=== PATIENT | female | born 1960 | race Caucasian/White ===

== ENCOUNTER 2019-12-15 14:23 | Inpatient (IN) | payer OTHER ==
[~2019-12-15] VITALS: Ht 160 cm; Wt 77.1 kg
--- NOTE | 2019-12-15 14:27 | NUR ---
PT. BIBA TAKEN TO BED 11
--- NOTE | 2019-12-15 14:30 | NUR ---
PT BIBA ALS FOR ALTERED MENTAL STATUS SECONDARY TO LOW BLOOD SUGAR, GLUCOSE 30 ON SCENE, GIVEN 20G SUGAR AND RECHECKED SHOWED 183 , PT AWAKE , ALERT, MONGOLIAN SPEAKING ,AFIBRILE ,SCE, CBS, AOX 3. PMHX DM ESRD
[2019-12-15 14:31] VITALS: BP 182/81
--- NOTE | 2019-12-15 14:37 | NUR ---
dr shen at bedside evaluating pt.
[2019-12-15] MEDS ORDERED: DEXTROSE 10% 500 ML IV SCH (14:45)
[2019-12-15] MEDS ORDERED: DEXTROSE 10% 500 ML IV ONE (14:53)
--- NOTE | 2019-12-15 15:02 | NUR ---
PT TO CT SCAN VIA [facility] , AWAKE , ALERT.
--- NOTE | 2019-12-15 15:25 | NUR ---
PT BACK FROM CT SCAN VIA [facility].
--- NOTE | 2019-12-15 15:46 | NUR ---
MACHINE SHOP SUPERVISOR AT BEDSIDE EVALUATING PT.
[2019-12-15 16:37] LABS: BASOPHILS # (AUTO) 0.1 K/uL (0.00-0.22); BASOPHILS % (AUTO) 0.6 % (0.0-2.0); HEMATOCRIT 34.7 % (36-48); LYMPHOCYTES # (AUTO) 1.7 K/uL (2.5-16.5); LYMPHOCYTES % (AUTO) 17.1 % (20.5-51.1); MEAN CORPUSCULAR HEMOGLOBIN 28 pg (27-31); MEAN CORPUSCULAR HGB CONC 32 g/dL (33-37); MEAN CORPUSCULAR VOLUME 89.3 fL (80-94); MONOCYTES # (AUTO) 0.3 K/uL (0.8-1.0); MONOCYTES % (AUTO) 2.9 % (1.7-9.3); NEUTROPHILS # (AUTO) 7.8 K/uL (1.8-7.7); NEUTROPHILS % (AUTO) 79.4 % (42.2-75.2); PLATELET COUNT (AUTO) 142 K/uL (140-450); RED BLOOD CELL COUNT(AUTO) 3.89 MIL/uL (4.20-5.40); RED CELL DISTRIBUTION WIDTH 16.8 % (11.6-13.7); WHITE BLOOD COUNT (AUTO) 9.8 K/uL (4.8-10.8)
--- NOTE | 2019-12-15 16:58 | NUR ---
labs at bedside drawing blood.
--- NOTE | 2019-12-15 17:06 | NUR ---
LABS DRAW BLOOD FROM RT ARM NOTIFIED IT WAS AVF.
[2019-12-15] MEDS ORDERED: cefTRIAXone 1,000 MG VIAL ONE (17:12)
[2019-12-15] MEDS ORDERED: GABA300C PO (17:23)
[2019-12-15] MEDS ORDERED: PHO667 PO (17:23)
[2019-12-15] MEDS ORDERED: CARV12.5 PO (17:25)
[2019-12-15 17:31] LABS: ALBUMIN 2.5 g/dL (3.4-5.0); ASPARTATE AMINOTRANSFERASE 22 U/L (15-37); CARBON DIOXIDE 22.4 mmol/L (21-32); CHLORIDE 98 mmol/L (98-107); GFR ARICAN-AMERICAN 4 mL/min (>90); GLUCOSE 179 mg/dL (74-106); SODIUM SERUM 132 mmol/L (136-145); TOTAL BILIRUBIN 0.3 mg/dL (0.0-1.0)
[2019-12-15] MEDS ORDERED: GLIP10TE PO (17:32)
[2019-12-15] MEDS ORDERED: ASPI-1822 PO (17:32)
[2019-12-15] MEDS ORDERED: [UNRECOGNIZED DRUG - CODE] PO (17:34)
[2019-12-15] MEDS ORDERED: FOLI0.8T PO (17:38)
[2019-12-15] MEDS ORDERED: METO-485 PO (17:38)
[2019-12-15] MEDS ORDERED: AMLO10TA PO (17:40)
[2019-12-15 17:42] LABS: POTASSIUM 6.4 mmol/L (3.5-5.1); UREA NITROGEN, BLOOD 71 mg/dL (7-18)
[2019-12-15 17:43] LABS: ACETAMINOPHEN < 0.5 ug/ml (10-30); CREATININE 12.2 mg/dL (0.6-1.3); SALICYLATE < 2.8 mg/dL (2.8-20.0)
[2019-12-15] MEDS ORDERED: ALBUTEROL 0.083% 2.5 MG/3 ML NEBU INH ONE (17:45)
[2019-12-15] MEDS ORDERED: SODIUM ZIRCONIUM CYCLOSILICATE 10 GM POWD.PACK PO ONE (17:45)
[2019-12-15] MEDS ORDERED: SODIUM BICARBONATE 8.4% PFS 50 MEQ/50 ML SYR IVP ONE (17:45)
[2019-12-15] MEDS ORDERED: CALCIUM GLUCONATE 10% 1000 MG/10 ML VIAL IVP ONE (17:45)
--- NOTE | 2019-12-15 19:10 | NUR ---
RECEIVED BEDSIDE REPORT FROM ER NURSE. PT CAME IN [facility]. IV SITE ON LAC 18G, PATENT, INTACT, AND ASYMPTOMATIC. BREATHING EVEN AND UNLABORED WITH OXYMIZER 3L. SKIN INTACT, WARM AND DRY TO TOUCH. ORIENTED ROOM TO PT. ALL SAFETY MEASUREMENT ARE MET. BOARD UPDATED, MRSA SWAB DONE, BED IN LOW POSITION, CALL LIGHT WITHIN REACH. Addendum: 12/16/19 at 0437 by Ronny Riggs RN PT HAVING OXYGEN 3LPM VIA NC
--- NOTE | 2019-12-15 19:10 | NUR ---
ADPatient will be admitted to care of dr franco. Admited to [facility]. Will go to room 120b. Belongings list completed. Report to kate de guzman.
[2019-12-15 20:00] VITALS: BP 186/79
[2019-12-15] MEDS ORDERED: HYDROcodone/APAP 7.5/325 MG 1 TAB PO PRN (20:05)
[2019-12-15] MEDS ORDERED: ONDANSETRON 4 MG/2 ML VIAL IVP PRN (20:05)
--- NOTE | 2019-12-15 20:26 | NUR ---
GIVEN COLACE AND HEPARIN MD ORDERED. PT TOLERATED WELL.
[2019-12-15 20:48] LABS: PROTHROMBIN TIME 10.3 secs (10.8-13.4)
[2019-12-15 20:57] LABS: FREE T4 (FREE THYROXINE) 0.94 ng/dL (0.76-1.46); PHOSPHORUS 8.8 mg/dL (2.5-4.9); THYROID STIMULATING HORMONE 1.16 uIU/mL (0.34-3.74)
[2019-12-15] MEDS ORDERED: DEXTROSE 50% 50 ML SYR IVP ONE (21:01)
[2019-12-15 21:03] LABS: APPEARANCE,URINE CLEAR (CLEAR); BILIRUBIN,URINE NEGATIVE (NEGATIVE); BLOOD, URINE NEGATIVE (NEGATIVE); COLOR,URINE YELLOW (YELLOW); LEUKOCYTE ESTERASE ,URINE NEGATIVE (NEGATIVE); NITRITE, URINE NEGATIVE (NEGATIVE); PH,URINE 7.5 (5.0-9.0); UGLUCOSE 1+ (NEGATIVE)
--- NOTE | 2019-12-15 21:05 | NUR ---
BS CHECKED, 60, GIVEN D50 MD ORDERED. WILL RE ACCESS BS.
[2019-12-15 21:14] LABS: BARBITURATE, URINE NEGATIVE ng/ml (NEG <=200); BENZODIAZEPINE, URINE NEGATIVE ng/mL (NEG <=200); CANNABINOID, URINE NEGATIVE ng/mL (NEG <=50); COCAINE, URINE NEGATIVE ng/mL (NEG <=300); OPIATE, URINE POSITIVE ng/mL (NEG <=2000); PHENCYCLIDINE SCREEN,URINE NEGATIVE ng/mL (NEG <=25)
[2019-12-15] MEDS: BLOOD GLUCOSE MONITORING 1 DEV DEV FS SCH (21:51)
[2019-12-15] MEDS: DEXTROSE 50% 50 ML SYR IVP PRN ×2 (21:52→23:41)
[2019-12-15] MEDS: NACL 0.9% 1,000 ML IV SCH (22:00)
[2019-12-15] MEDS: DOCUSATE SODIUM 100 MG GELCAP PO SCH (22:21)
--- NOTE | 2019-12-15 23:00 | NUR ---
BS CHECKED, 58, GIVEN ANOTHER D50 AND PROVIDE PEANUT BUTTER SANDWICH.
[2019-12-15 23:56] LABS: CARBON DIOXIDE 21.5 mmol/L (21-32); POTASSIUM 5.5 mmol/L (3.5-5.1)
[2019-12-16] VITALS (7 sets, daily range): BP systolic 104–197; BP diastolic 60–87
--- NOTE | 2019-12-16 | NUR ---
BS CHECKED, 144. NO INSULIN COVERAGE NEEDED.
[2019-12-16 00:01] LABS: CREATININE 12.6 mg/dL (0.6-1.3)
[2019-12-16] MEDS ORDERED: hydrALAZINE 20 MG/ML VIAL IVP ONE ×2 (00:15→02:30)
--- NOTE | 2019-12-16 00:50 | NUR ---
BP 197/87, GIVEN HYDRALAZINE MD ORDERED. PT TOLERATED WELL.
--- NOTE | 2019-12-16 01:50 | NUR ---
BP CHECKED, 184/70. REPORTED TO DR. SIMON.
[2019-12-16] MEDS: ACETAMINOPHEN 325 MG TAB PO PRN (03:28)
--- NOTE | 2019-12-16 03:30 | NUR ---
GIVEN HYDRALAZINE MD ORDERED. PT C/O HEADACHE, GIVEN TYLENOL. PT TOLERATED WELL. SCANNER DID NOT WORK, PUT IT MANUALLY.
--- NOTE | 2019-12-16 04:28 | NUR ---
BP CHECKED, 104/65. WILL CONTINUE TO MONITOR.
[2019-12-16] MEDS: METOCLOPRAMIDE 10 MG TAB PO SCH ×4 (05:58→23:06)
[2019-12-16] MEDS: BLOOD GLUCOSE MONITORING 1 DEV DEV FS SCH ×4 (05:58→21:09)
--- NOTE | 2019-12-16 05:59 | NUR ---
GIVEN REGLAN MD ORDERED. BS CHECKED, 121, NO INSULIN COVERAGE NEEDED.
--- NOTE | 2019-12-16 06:58 | NUR ---
PT IN STABLE CONDITION. WILL ENDORSE TO DAY SHIFT NURSE FOR CONTINUOUS CARE.
--- NOTE | 2019-12-16 07:15 | NUR ---
RECEIVED PT FROM TIP CUTTER NURSELUZ, PT IS AWAKE AND SEATED ON TH BED WITH A RESTRICTED ARM ON THE RT AV SHUNT IN PLACE AND RT UPPER CHEST CHALO CATHETER FOR DIALYSIS ACCESS, IV LINE ON THE LEFT FA G. 22 WITH NS INFUSING AT 10ML/HR, ON O2 3L NC, SAFETY AND FALL PRECAUTION ENFORCED, PT DENIES PAIN AND NO SIGN OF DISTRESS NOTED, PLAN OF CARE AND SAFETY WERE DISCUSSED, PT VERBALIZED UNDERSTANDING, AND WILL CONTINUE TO MONITOR PT.
[2019-12-16 07:21] LABS: BASOPHILS % (AUTO) 0.3 % (0.0-2.0); EOSINOPHILS # (AUTO) 0.2 K/uL (0-0.4); EOSINOPHILS % (AUTO) 1.6 % (0.0-4.0); HEMATOCRIT 33.8 % (36-48); HEMOGLOBIN 10.7 g/dL (12.0-16.0); LYMPHOCYTES # (AUTO) 2.5 K/uL (2.5-16.5); LYMPHOCYTES % (AUTO) 21.9 % (20.5-51.1); MEAN CORPUSCULAR HEMOGLOBIN 28 pg (27-31); MEAN CORPUSCULAR HGB CONC 32 g/dL (33-37); MEAN CORPUSCULAR VOLUME 88.6 fL (80-94); MONOCYTES # (AUTO) 0.5 K/uL (0.8-1.0); MONOCYTES % (AUTO) 4.5 % (1.7-9.3); NEUTROPHILS # (AUTO) 8.2 K/uL (1.8-7.7); NEUTROPHILS % (AUTO) 71.7 % (42.2-75.2); PLATELET COUNT (AUTO) 171 K/uL (140-450); RED BLOOD CELL COUNT(AUTO) 3.81 MIL/uL (4.20-5.40); RED CELL DISTRIBUTION WIDTH 16.7 % (11.6-13.7); WHITE BLOOD COUNT (AUTO) 11.5 K/uL (4.8-10.8)
[2019-12-16 07:34] LABS: CARBON DIOXIDE 21.7 mmol/L (21-32); POTASSIUM 5.7 mmol/L (3.5-5.1)
[2019-12-16 07:40] LABS: CREATININE 12.2 mg/dL (0.6-1.3)
[2019-12-16 07:42] LABS: CHOL/HDL RATIO 6.1 (1-4.5); MAGNESIUM 2.8 mg/dL (1.8-2.4); PHOSPHORUS 8.7 mg/dL (2.5-4.9)
[2019-12-16] MEDS: VITAMIN B COMPLEX W/C 1 TAB PO SCH (08:41)
[2019-12-16] MEDS: DOCUSATE SODIUM 100 MG GELCAP PO SCH ×2 (08:42→20:16)
[2019-12-16] MEDS: FOLIC ACID 1 MG TAB PO SCH (08:43)
[2019-12-16] MEDS: GABAPENTIN 300 MG CAP PO SCH (08:44)
[2019-12-16] MEDS: ASPIRIN 81 MG TAB.CHEW PO SCH (08:44)
[2019-12-16] MEDS: amLODIPine 5 MG TAB PO SCH (08:49)
[2019-12-16] MEDS: CARVEDILOL 12.5 MG TAB PO SCH ×2 (08:49→20:16)
[2019-12-16] MEDS ORDERED: CALCIUM ACETATE 667 MG TAB PO SCH (09:00)
--- NOTE | 2019-12-16 09:30 | NUR ---
PT BLOOD GLUCOSE WAS CHECKED PER DR. CHAMORRO'S ORDER AND RESULT IS 88, NO SIGN OF DISTRESS NOTED AND PT DENIES PAIN. WILL MONITOR PT.
--- NOTE | 2019-12-16 09:43 | NUR ---
PATIENT HAS BEEN SCREENED AND CATEGORIZED MODERATE NUTRITION RISK. PATIENT WILL BE SEEN WITHIN 3-5 DAYS OF ADMISSION. 12/18/2019-12/20/[address]
--- NOTE | 2019-12-16 10:09 | NUR ---
MEDICATIONS DUE GIVEN AND BP MEDICATION HAS BEEN HELD, PT IS SCHEDULED FOR DIALYSIS. ASSISTED PT IN EATING. TOLERATED WELL. SAFETY MEASURES IN PLACE AND CALL LIGHT WITHIN REACH. WILL CONTINUE TO MONITOR.
[2019-12-16] MEDS ORDERED: AZITHROMYCIN 250 MG TAB PO SCH (10:30)
--- NOTE | 2019-12-16 10:30 | NUR ---
MEDICATION DUE GIVEN AND PATIENT TOLERATED WELL. SAFETY MEASURES IN PLACE AND WILL CONTINUE TO MONITOR.
--- NOTE | 2019-12-16 10:45 | NUR ---
PATIENT STARTED HEMODIALYSIS . PT IS STABLE SAFETY MEASURES IN PLACE. WILL CONTINUE TO MONITOR.
[2019-12-16] MEDS: CALCIUM ACETATE 667 MG TAB PO SCH ×2 (13:41→18:07)
--- NOTE | 2019-12-16 13:45 | NUR ---
HEMODIALYSIS DONE AT THIS TIME. PT BP: 155/77, TX :83, O2 SAT: 96% AND RR:18. AND AN OUTPUT OF 2.5L. PT IS STABLE. SAFETY MEASURES IN PLACE AND CALL LIGHT WITHIN REACH.WILL CONTINUE TO MONITOR.
--- NOTE | 2019-12-16 16:10 | NUR ---
ECHOCARDIOGRAM IS DONE TO PT NOW. WILL CONTINUE TO MONITOR.
--- NOTE | 2019-12-16 16:30 | NUR ---
ECHOCARDIOGRAM DONE AND PT IS STABLE. VS; BP 158/70, SC 77, RR: 18, T: 98.8,O2SAT:97.WILL CONTINUE TO MONITOR.
--- NOTE | 2019-12-16 16:34 | NUR ---
PT BLOOD GLUCOSE MONITORED WITH A RESULT OF 136MG/DL. NO INSULIN COVERAGE. WILL CONTINUE TO MONITOR
--- NOTE | 2019-12-16 18:14 | NUR ---
MEDICATION DUE GIVEN, PT IS AWAKE AND EATING COMFORTABLY. SAFETY MEASURES IN PLACE.WILL CONTINUE TO MONITOR.
--- NOTE | 2019-12-16 19:18 | NUR ---
ENDORSED PT TO TIP BANDING MACHINE OPERATOR NURSE, ANDRZEJ, FOR CONTINUITY OF CARE.
--- NOTE | 2019-12-16 19:21 | NUR ---
RECEIVED PATIENT IN STABLE CONDITION FROM AM SHIFT NURSE FOR CONTINUITY OF CARE. RESPIRATIONS EVEN, UNLABORED. CONTINUES ON O2 2L VIA NC. RIGHT IJ HEMODIALYSIS ACCESS NOTED. SITE TO LEFT FOREARM PATENT/INTACT, INFUSING FLUIDS WELL. NO C/O PAIN. NO S/SX ACUTE DISTRESS. SAFETY PRECAUTIONS IN PLACE. CALL LIGHT WITHIN REACH. WILL CONTINUE TO MONITOR.
[2019-12-16] MEDS: NACL 0.9% 1,000 ML IV SCH (20:12)
[2019-12-16] MEDS: ATORVASTATIN 20 MG TAB PO SCH (20:16)
[2019-12-16] MEDS: INSULIN LISPRO SLIDING SCALE 100 UNITS/ML VIAL SUBQ PRN (20:24)
--- NOTE | 2019-12-16 21:21 | NUR ---
MADE ROUNDS. PATIENT IS ASLEEP AND IN STABLE CONDITION. NO C/O PAIN. NO S/SX ACUTE DISTRESS. CALL LIGHT WITHIN REACH. WILL CONTINUE TO MONITOR.
--- NOTE | 2019-12-16 23:43 | NUR ---
PATIENT IS AWAKE AND IN STABLE CONDITION. NO C/O PAIN. NO S/SX ACUTE DISTRESS. CALL LIGHT WITHIN REACH. WILL CONTINUE TO MONITOR.
[2019-12-17] VITALS: BP 142/56
--- NOTE | 2019-12-17 01:49 | NUR ---
PATIENT IS AWAKE WATCHING TV AND IN STABLE CONDITION. NO C/O PAIN. NO S/SX ACUTE DISTRESS. CALL LIGHT WITHIN REACH. WILL CONTINUE TO MONITOR.
--- NOTE | 2019-12-17 03:29 | NUR ---
AWAKE AND CONTINUES IN STABLE CONDITION. NO C/O PAIN. NO S/SX ACUTE DISTRESS. CALL LIGHT WITHIN REACH. WILL CONTINUE TO MONITOR.
[2019-12-17 04:00] VITALS: BP 142/67
--- NOTE | 2019-12-17 05:10 | NUR ---
PATIENT IS AWAKE AND CONTINUES IN STABLE CONDITION. NO C/O PAIN. NO S/SX ACUTE DISTRESS. CALL LIGHT WITHIN REACH. WILL CONTINUE TO MONITOR.
[2019-12-17] MEDS: METOCLOPRAMIDE 10 MG TAB PO SCH ×3 (06:10→17:19)
[2019-12-17] MEDS: BLOOD GLUCOSE MONITORING 1 DEV DEV FS SCH ×4 (06:32→21:38)
[2019-12-17] MEDS: INSULIN LISPRO SLIDING SCALE 100 UNITS/ML VIAL SUBQ PRN ×3 (06:32→21:43)
--- NOTE | 2019-12-17 07:17 | NUR ---
ENDORSED PATIENT IN STABLE CONDITION TO AM SHIFT NURSE FOR CONTINUITY OF CARE.
--- NOTE | 2019-12-17 07:21 | NUR ---
RECEIVED REPORT FROM NIGHT NURSE, PT IS AWAKE AND STABLE, NO DISTRESS NOTED AND DENIES PAIN. RESPIRATIONS EVEN AND UNLABORED ON O2 2LPM NC. IV SITES IN PLACE INTACT AND PATENT. SAFETY MEASURES IN PLACE AND CALL LIGHT WITH IN REACH. WILL CONTINUE TO MONITOR.
[2019-12-17 08:00] VITALS: BP 163/61
[2019-12-17] MEDS ORDERED: AZITHROMYCIN 250 MG TAB PO SCH (09:00)
[2019-12-17] MEDS: CALCIUM ACETATE 667 MG TAB PO SCH ×3 (09:21→16:50)
[2019-12-17] MEDS: ASPIRIN 81 MG TAB.CHEW PO SCH (09:22)
[2019-12-17] MEDS: DOCUSATE SODIUM 100 MG GELCAP PO SCH ×2 (09:22→21:28)
[2019-12-17] MEDS: VITAMIN B COMPLEX W/C 1 TAB PO SCH (09:22)
[2019-12-17] MEDS: GABAPENTIN 300 MG CAP PO SCH (09:23)
[2019-12-17] MEDS: FOLIC ACID 1 MG TAB PO SCH (09:24)
[2019-12-17] MEDS: LACTOBACILLUS RHAMNOSUS GG 1 EACH CAP PO SCH (09:24)
[2019-12-17] MEDS: CARVEDILOL 12.5 MG TAB PO SCH ×2 (09:24→21:28)
--- NOTE | 2019-12-17 09:24 | NUR ---
PT WAS GIVEN THE SCHEDULED AM MEDICATIONS,CRUSHED AND ASPIRATION PRECAUTION INITIATED, PARAMETERS CHECKED, BP IS 163/61, PULSE IS 88 MANUALLY, O2 SATURATION IS 97%, RESPIRATION IS 18/MIN. WILL MONITOR PT
[2019-12-17] MEDS: amLODIPine 5 MG TAB PO SCH (09:25)
--- NOTE | 2019-12-17 09:55 | NUR ---
DR. MURPHY CAME TO THE PT'S ROOM AND SPOKE AND ASSESSED THE PT AND PT RESPONDED APPROPRIATELY TO THE MD JOHNSON ASKED ABOUT a CARDIAC MEDICATION.
--- NOTE | 2019-12-17 11:28 | NUR ---
BLOOD GLUCOSE MONITORING DONE AT 289MG/DL AND GAVE INSULIN OF 6UNITS. PATIENT TOLERATED WELL.SAFETY MEASURES IN PLACE.WILL CONTINUE TO MONITOR.
[2019-12-17 12:00] VITALS: BP 149/56
--- NOTE | 2019-12-17 12:56 | NUR ---
PT WAS GIVEN ORAL MEDICATIONS NOW, CRUSHED WITH APPLE SAUCE, TOLERATED AND WILL MONITOR PT.
--- NOTE | 2019-12-17 14:15 | NUR ---
DISCHARGE PLANNING: THIS IS A 59 Y/O FEMALE PATIENT, FROM HOME, WHO WAS BIBA DUE TO ALETERED LEVEL OF CONSCIOUSNESS. PAST MEDICAL HISTORY INCLUDE ESRD ON HD -, DIABETES, HTN, HLD, CAD- S/P CABG AND CVA WITH LEFT SIDED WEAKNESS AND DYSPHAGIA. INITIAL DIAGNOSIS OF PERSISTENT HYPERKALEMIA AND ALTERED LEVEL OF CONSCIOUSNESS. CURRENT LABS INCLUDE WBC 11.5, H/H 10.7/33.8, NA/K 138/5.7, BUN/CREA 73/12.2, MAG 2.8. ON AZITHROMYCIN, ROCEPHIN. CARDIO, NEPHRO AND ID CONSULTS IN PLACE. DC PLAN BACK TO HOME ONCE STABLE. Addendum: 12/19/19 at 1332 by Olga Lewis CM DC PLANNING: SEEN BY DR MELTON DISCONTINUED AZITHROMYCIN AND STARTED VANCO AND CONTINUED IV ROCEPHIN FOR BLOOD CULTURE GROWING GRAM +COCCI . SEEN BY CARDIO AND GARDEN LABOURER CONTINUE HEMODIALYSIS. DC PLAN TOGO HOME WITH HOME HEALTH FOR PHYSICAL THERAPY. CM TO FOLLOW Addendum: 12/20/19 at 1021 by Yenni Nix CM 0900: RECEIVED A DC ORDER WITH HOME HEALTH. MET WITH THE PATIENT AT THE BEDSIDE TO DISCUSS DC PLANNING AND IS IN AGREEMENT. SHE STATED SHE HAD A HOME HEALTH BEFORE HOWEVER SHE IS REQUESTING FOR A NEW ONE. SHE CONFIRMED THE ADDRESS AND PHONE NUMBER ON FILE. CONTACTED PATIENT'S CHRISTAL AGUIRRE AT [phone] TO DISCUSS DC PLANNING AND IS IN AGREEMENT WELL. HE ASKED IF WHAT TIME. I INFORMED HIM THAT THE NURSE WILL CALLING HIM. ALL QUESTIONS AND CONCERNS ANSWERED AND IS VERY APPRECIATIVE. REFERRAL SENT TO [facility]. WILL FOLLOW UP. Addendum: 12/20/19 at 1315 by Yenni Nix CM PER NICOL OF [facility], THEY ARE ABLE TO ACCEPT THE PATIENT. I ALSO INFORMED HER THAT THE ADDRESS AND PHONE NUMBER ON THE FACE SHEET IS CORRECT AND PATIENT IS ON DIALYSIS M-W- AT [facility] AT 1345PM AND HER TAKES HER TO DIALYSIS. Addendum: 12/22/19 at 1004 by Yenni Nix RECEIVED A CALL FROM [facility] STATING THAT THEY ARE NOT ABLE TO PROVIDE SERVICES TO THE PATIENT DUE TO PATIENT'S IS REFUSING A NEW ZEALANDER NURSE AND IS REQUESTING TO HAVE A NURSE WHICH [facility] DOES NOT HAVE. CONTACTED PATIENT'S CHRISTAL AGUIRRE AT [phone], NO ANSWER. UNABLE TO LEAVE MESSAGE. NO VOICEMAIL SET UP AND IT JUST KEPT ON RINGING. CONTACTED PATIENT AT [phone], NO ANSWER AND SAME THING. IT JUST KEPT ON RINGING. WILL FOLLOW UP.
--- NOTE | 2019-12-17 14:30 | NUR ---
DR. CHAMORRO CAME TO PT'S ROOM AND SPOKE TO PT.
[2019-12-17] MEDS ORDERED: VANCOMYCIN PER PHARMACY MC PRN (14:50)
[2019-12-17 16:00] VITALS: BP 120/72
[2019-12-17 16:00] LABS: BASOPHILS % (AUTO) 0.4 % (0.0-2.0); EOSINOPHILS # (AUTO) 0.5 K/uL (0-0.4); EOSINOPHILS % (AUTO) 5.4 % (0.0-4.0); HEMATOCRIT 33.1 % (36-48); HEMOGLOBIN 10.4 g/dL (12.0-16.0); LYMPHOCYTES # (AUTO) 3.1 K/uL (2.5-16.5); LYMPHOCYTES % (AUTO) 33.3 % (20.5-51.1); MEAN CORPUSCULAR HEMOGLOBIN 28 pg (27-31); MEAN CORPUSCULAR HGB CONC 31 g/dL (33-37); MEAN CORPUSCULAR VOLUME 88.9 fL (80-94); MONOCYTES # (AUTO) 0.6 K/uL (0.8-1.0); NEUTROPHILS # (AUTO) 5.1 K/uL (1.8-7.7); NEUTROPHILS % (AUTO) 54.9 % (42.2-75.2); PLATELET COUNT (AUTO) 160 K/uL (140-450); RED BLOOD CELL COUNT(AUTO) 3.72 MIL/uL (4.20-5.40); RED CELL DISTRIBUTION WIDTH 15.6 % (11.6-13.7); WHITE BLOOD COUNT (AUTO) 9.3 K/uL (4.8-10.8)
[2019-12-17] MEDS ORDERED: VANCOMYCIN 750 MG in DEXTROSE 5% 250 ML IV SCH (16:00)
--- NOTE | 2019-12-17 16:07 | NUR ---
PT WAS GIVEN IVPB MEDICATION NOW.
[2019-12-17 16:34] LABS: ANION GAP 13.7 (8-16); CARBON DIOXIDE 26.7 mmol/L (21-32); POTASSIUM 5.4 mmol/L (3.5-5.1)
[2019-12-17 16:37] LABS: MAGNESIUM 2.7 mg/dL (1.8-2.4)
[2019-12-17 16:39] LABS: CREATININE 9.6 mg/dL (0.6-1.3)
--- NOTE | 2019-12-17 16:55 | NUR ---
MEDICATION DUE GIVEN PT TOLERATED WELL WILL CONTINUE TO MONITOR.
--- NOTE | 2019-12-17 17:23 | NUR ---
PT WAS GIVEN ORAL AND IVPB MEDICATIONS NOW, WILL MONITOR PT.
--- NOTE | 2019-12-17 19:15 | NUR ---
ENDORSED PT TO RN SECURITY NURSE, MALCOM, FOR CONTINUITY OF CARE.
--- NOTE | 2019-12-17 19:16 | NUR ---
RECEIVED ENDORSEMENT FROM AM SHIFT RN. PATIENT IS AWAKE. PATIENT SAID SHE IS SLEEPY. RESPIRATION EVEN AND UNLABORED. NOT IN ANY ACUTE DISTRESS. LAC 20G NOTED. INTACT. RIGHT I.J. TUNNELED CATH, NO BLEEDING NOTED. R ARM AV FISTULA (+) BRUIT. LOW BED IN PLACE. CALL LIGHT WITHIN REACH. WILL CONTINUE TO MONITOR.
[2019-12-17 20:00] VITALS: BP 124/39
[2019-12-17] MEDS: NACL 0.9% 1,000 ML IV SCH (20:01)
[2019-12-17] MEDS: ATORVASTATIN 20 MG TAB PO SCH (21:29)
--- NOTE | 2019-12-17 21:30 | NUR ---
ADMINISTERED DUE MEDS ORDERED. CLAUDIA WELL. MED ED PROVIDED. DENIES PAIN. CALL LIGHT WITHIN REACH.
[2019-12-18] VITALS: BP 115/49
[2019-12-18] MEDS: METOCLOPRAMIDE 10 MG TAB PO SCH ×4 (00:28→17:24)
--- NOTE | 2019-12-18 00:30 | NUR ---
ADMINISTERED REGLAN 5MG PO ORDERED. TOLERATED WELL. DENIES PAIN. NO SOB NOTED. CALL LIGHT WITHIN REACH.
--- NOTE | 2019-12-18 01:52 | NUR ---
PATIENT IS SLEEPING. RESPIRATION EVEN AND UNLABORED. WILL CONTINUE TO MONITOR
--- NOTE | 2019-12-18 03:21 | NUR ---
DID MY ROUNDS. PATIENT IS ASLEEP. RESPIRATION EVEN AND UNLABORED. WILL CONTINUE TO MONITOR.
[2019-12-18 04:00] VITALS: BP 150/53
[2019-12-18] MEDS: BLOOD GLUCOSE MONITORING 1 DEV DEV FS SCH ×4 (06:43→21:39)
--- NOTE | 2019-12-18 06:45 | NUR ---
DUE MEDS GIVEN ORDERED. CLAUDIA WELL. NOT IN ANY ACUTE DISTRESS. DENIES PAIN. WILL ENDORSE TO AM SHIFT RN FOR CONTINUITY OF CARE.
[2019-12-18 06:56] LABS: BASOPHILS # (AUTO) 0.1 K/uL (0.00-0.22); BASOPHILS % (AUTO) 0.6 % (0.0-2.0); EOSINOPHILS # (AUTO) 0.4 K/uL (0-0.4); EOSINOPHILS % (AUTO) 3.6 % (0.0-4.0); HEMATOCRIT 32.6 % (36-48); HEMOGLOBIN 10.3 g/dL (12.0-16.0); LYMPHOCYTES # (AUTO) 2.4 K/uL (2.5-16.5); LYMPHOCYTES % (AUTO) 21.1 % (20.5-51.1); MEAN CORPUSCULAR HEMOGLOBIN 28 pg (27-31); MEAN CORPUSCULAR HGB CONC 32 g/dL (33-37); MEAN CORPUSCULAR VOLUME 88.3 fL (80-94); MONOCYTES # (AUTO) 0.7 K/uL (0.8-1.0); MONOCYTES % (AUTO) 5.9 % (1.7-9.3); NEUTROPHILS # (AUTO) 7.8 K/uL (1.8-7.7); NEUTROPHILS % (AUTO) 68.8 % (42.2-75.2); PLATELET COUNT (AUTO) 176 K/uL (140-450); RED BLOOD CELL COUNT(AUTO) 3.69 MIL/uL (4.20-5.40); RED CELL DISTRIBUTION WIDTH 15.9 % (11.6-13.7); WHITE BLOOD COUNT (AUTO) 11.3 K/uL (4.8-10.8)
--- NOTE | 2019-12-18 07:15 | NUR ---
RECEIVED BEDSIDE REPORT FROM NIGHTSHIFT NURSE. PT RESTING IN BED. ABLE TO MAKE NEEDS KNOWN. RESPIRATIONS EVEN AND UNLABORED WITH NO SOB OR RESPIRATORY DISTRESS. SKIN WARM AND DRY TO TOUCH. IV SITE IN LEFT FA 22G IS CLEAN, DRY, AND INTACT. SAFETY MEASURES IN PLACE. WILL CONTINUE TO MONITOR
[2019-12-18 07:50] LABS: ANION GAP 15.9 (8-16); CARBON DIOXIDE 24.3 mmol/L (21-32)
[2019-12-18 07:56] LABS: MAGNESIUM 2.6 mg/dL (1.8-2.4); PHOSPHORUS 8.7 mg/dL (2.5-4.9)
[2019-12-18 08:00] VITALS: BP 131/51
[2019-12-18 08:15] LABS: CREATININE 10.1 mg/dL (0.6-1.3); POTASSIUM 6.2 mmol/L (3.5-5.1)
--- NOTE | 2019-12-18 08:16 | NUR ---
RECEIVED CRITICAL LAB FROM CHEMISTRY. POTASSIUM IS 6.2 AND CREATININE IS 10.1. RESIDENT MADE AWARE. SAFETY MEASURES IN PLACE.
[2019-12-18] MEDS: amLODIPine 5 MG TAB PO SCH (09:00)
[2019-12-18] MEDS: CARVEDILOL 12.5 MG TAB PO SCH ×2 (09:00→21:00)
[2019-12-18] MEDS ORDERED: BISACODYL 5 MG TABEC PO SCH (09:30)
[2019-12-18] MEDS ORDERED: SODIUM ZIRCONIUM CYCLOSILICATE 10 GM POWD.PACK PO SCH (10:00)
[2019-12-18] MEDS: ASPIRIN 81 MG TAB.CHEW PO SCH (10:16)
[2019-12-18] MEDS: FOLIC ACID 1 MG TAB PO SCH (10:17)
[2019-12-18] MEDS: DOCUSATE SODIUM 100 MG GELCAP PO SCH ×2 (10:18→21:40)
[2019-12-18] MEDS: GABAPENTIN 300 MG CAP PO SCH (10:20)
[2019-12-18] MEDS: CALCIUM ACETATE 667 MG TAB PO SCH ×3 (10:21→17:24)
[2019-12-18] MEDS: LACTOBACILLUS RHAMNOSUS GG 1 EACH CAP PO SCH (10:22)
[2019-12-18] MEDS: VITAMIN B COMPLEX W/C 1 TAB PO SCH (10:37)
[2019-12-18] MEDS: ACETAMINOPHEN 325 MG TAB PO PRN (10:37)
--- NOTE | 2019-12-18 10:40 | NUR ---
ADMINISTERED SCHED MED PRESCRIBED PER MD ORDER. PT TOLERATED WELL. MEDICATION EDUCATION PERFORMED. PT VERBALIZED UNDERSTANDING. SAFETY MEASURES IN PLACE. WILL CONTINUE TO MONITOR
--- NOTE | 2019-12-18 11:15 | NUR ---
DIALYSIS NURSE ROMMEL IS HERE. BEDSIDE REPORT GIVEN. PT RESTING IN BED. ABLE TO MAKE NEEDS KNOWN. RESPIRATIONS EVEN AND UNLABORED WITH NO SOB OR RESPIRATORY DISTRESS. SKIN WARM AND DRY TO TOUCH. SAFETY MEASURES IN PLACE. WILL CONTINUE TO MONITOR
[2019-12-18 12:00] VITALS: BP 111/27
[2019-12-18] MEDS: INSULIN LISPRO SLIDING SCALE 100 UNITS/ML VIAL SUBQ PRN ×3 (12:32→21:46)
--- NOTE | 2019-12-18 12:37 | NUR ---
ADMINISTERED SCHED MED PRESCRIBED PER MD ORDER. PT TOLERATED WELL. MEDICATION EDUCATION PERFORMED. PT VERBALIZED UNDERSTANDING. SAFETY MEASURES IN PLACE. WILL CONTINUE TO MONITOR
--- NOTE | 2019-12-18 12:43 | NUR ---
ST NOTE S: SWALLOW EVAL WAS RECEIVED AND VERIFIED. RN, REGINALDO, CLEARED Pt FOR SWALLOW EVAL. Pt WAS ALERT, RESPONSIVE, VERBAL, AND COOPERATIVE. HOB WAS NEAR 90 DEGREES FOR ASPIRATION PRECAUTIONS. Pt WAS ADMITTED FOR PERSISTENT HYPERKALEMIA, ALOC, METABOLIC ENCEPHALOPATHY D/T HYPOGLYCEMIA. PLOF WAS MSC/THIN DIET, LIVES AT HOME W/ . Pt HAS HX OF ESRD ON HD, DIABETES, HTN, CAD, CVA W/ LEFT SIDED WEAKNESS, DYSPHASIA, VASOMOTOR NEUROPATHY D/T ESRD, TYPE II MN LIKELY D/T ESRD, DIABETIC NEUROPATHY, DIABETIC GASTROPARESIS, OBESE (BMI 30.1). O: SWALLOW EVAL COMPLETED. A: Pt WAS ENDENTULOUS WITH FULL DENTURES IN. ORAL MOTOR FUNCTION WAS WFL. Pt WAS ABLE TO TOLERATE ICE CHIPS, PUREE, MSC, AND THIN LIQUIDS BY CUP OR STRAW, SINGLE SIPS, W/O DIFFICULTY OR OVERT S/S OF ASPIRATION OR PENETRATION NOTED. Pt REPORTED NOT BEING ABLE TO CUT OWN FOOD, BUT ABLE TO FEED SELF IF FOOD IS CUT PRIOR. Pt IS UNABLE TO MASTICATE REGULAR FOODS SUCH TOUGHER MEATS WITH DENTURES. P: REC PLOF DIET OF MSC FOOD AND THIN LIQUIDS, SINGLE SIPS BY CUP OR STRAW OKAY. ASPIRATION PRECAUTIONS, ORAL CARE, TRAY SET UP, AND INTERMITTENT SUPERVISION NEEDED. D/C SKILLED ST. Pt AT [facility].
--- NOTE | 2019-12-18 12:45 | NUR ---
HOURLY ROUNDING. PT RESTING IN BED. ABLE TO MAKE NEEDS KNOWN. RESPIRATIONS EVEN AND UNLABORED WITH NO SOB OR RESPIRATORY DISTRESS. SKIN WARM AND DRY TO TOUCH. SAFETY MEASURES IN PLACE. WILL CONTINUE TO MONITOR
--- NOTE | 2019-12-18 13:15 | NUR ---
RECEIVED TORB FROM VICKIE WAYNE MD FOR HEMODIALYSIS TX 3HR, 3L, K 1.2, HCO3 30, CA 2.5, NA 140, BFR 300, DFR 600. DIALYSIS NURSE ROMMEL CONFIRMED TORB TO VICKIE WAYNE MD AT THIS TIME.
[2019-12-18 16:00] VITALS: BP 126/57
--- NOTE | 2019-12-18 17:31 | NUR ---
ADMINISTERED SCHED MED PRESCRIBED PER MD ORDER. PT TOLERATED WELL. MEDICATION EDUCATION PERFORMED. PT VERBALIZED UNDERSTANDING. SAFETY MEASURES IN PLACE. WILL CONTINUE TO MONITOR
[2019-12-18 18:46] LABS: ANION GAP 11.3 (8-16); CARBON DIOXIDE 29.1 mmol/L (21-32); POTASSIUM 3.4 mmol/L (3.5-5.1)
[2019-12-18 18:49] LABS: MAGNESIUM 2.1 mg/dL (1.8-2.4); PHOSPHORUS 5.8 mg/dL (2.5-4.9)
[2019-12-18 18:57] LABS: CREATININE 5.7 mg/dL (0.6-1.3)
--- NOTE | 2019-12-18 18:58 | NUR ---
RECIEVED CRITICAL LAB FROM CHEMISTRY. CREATININE 5.7. RESIDENT AWARE. SAFETY MEASURES IN PLACE.
--- NOTE | 2019-12-18 19:05 | NUR ---
ENDORSED AT BEDSIDE TO NIGHTSHIFT NURSE. PT IS STABLE.
--- NOTE | 2019-12-18 19:06 | NUR ---
RECEIVED REPORT FROM AM SHIFT RN. PATIENT IS LYING IN BED. AWAKE ALERT. ABLE TO MAKE NEEDS KNOWN. ON O2 VIA NC AT 2LPM. RESPIRATION EVEN AND UNLABORED. NO SOB. LFA 22G NOTED. WITH RIGHT I.J. TUNNELED CATH. AND R ARM AV FISTULA (+) BRUIT. NO BLEEDING NOTED. LOW BED IN PLACE. PLAN OF CARE WAS DISCUSSED. CALL LIGHT WITHIN REACH
[2019-12-18 20:00] VITALS: BP 107/62
[2019-12-18] MEDS: NACL 0.9% 1,000 ML IV SCH (20:01)
--- NOTE | 2019-12-18 21:39 | NUR ---
ADMINISTERED DUE MEDS ORDERED. TOLERATED WELL. MED ED PROVIDED. DENIES PAIN. NO SOB NOTED. CALL LIGHT WITHIN REACH.
[2019-12-18] MEDS: ATORVASTATIN 20 MG TAB PO SCH (21:40)
[2019-12-19] VITALS: BP 149/56
[2019-12-19] MEDS: METOCLOPRAMIDE 10 MG TAB PO SCH ×4 (00:04→17:37)
--- NOTE | 2019-12-19 00:04 | NUR ---
GAVE REGLAN 5MG PO ORDERED. MED EDUCATION PROVIDED. PATIENT IS RESTING. COOPERATIVE. DENIES PAIN. CALL LIGHT WITHIN REACH.
--- NOTE | 2019-12-19 02:56 | NUR ---
PATIENT IS ASLEEP. RESPIRATION EVEN AND UNLABORED. NOT IN ANY DISTRESS.
[2019-12-19 04:00] VITALS: BP 162/63
--- NOTE | 2019-12-19 04:50 | NUR ---
INFORMED DR. SIMON OF THE BP 162/63. PATIENT IS ASYMPTOMATIC. HE SAID TO JUST MONITOR.
--- NOTE | 2019-12-19 06:13 | NUR ---
DUE MEDS GIVEN ORDERED. TOLERATED WELL. MED EDUCATION PROVIDED. NO C/O PAIN/DISCOMFORT. NO SOB NOTED.
--- NOTE | 2019-12-19 06:59 | NUR ---
PATIENT IS ASLEEP. NOT IN ANY ACUTE DISTRESS. LOW BED IN PLACE. KEPT CLEAN AND DRY. CALL LIGHT WITHIN REACH. WILL ENDORSE TO AM SHIFT RN FOR CONTINUITY OF CARE.
--- NOTE | 2019-12-19 07:10 | NUR ---
RECEIVED BEDSIDE REPORT FROM NIGHTSHIFT NURSE. PT RESTING IN BED. ABLE TO MAKE NEEDS KNOWN. RESPIRATIONS EVEN AND UNLABORED WITH NO SOB OR RESPIRATORY DISTRESS. SKIN WARM AND DRY TO TOUCH. IV SITE IN LAC 20G IS CLEAN, DRY, AND INTACT. SAFETY MEASURES IN PLACE. WILL CONTINUE TO MONITOR
[2019-12-19] MEDS: BLOOD GLUCOSE MONITORING 1 DEV DEV FS SCH ×4 (07:30→21:11)
[2019-12-19 08:00] VITALS: BP 145/66
[2019-12-19] MEDS ORDERED: VANCOMYCIN 750 MG in DEXTROSE 5% 250 ML IV SCH (08:00)
[2019-12-19] MEDS: INSULIN LISPRO SLIDING SCALE 100 UNITS/ML VIAL SUBQ PRN ×3 (08:43→21:13)
[2019-12-19] MEDS: DOCUSATE SODIUM 100 MG GELCAP PO SCH ×2 (08:52→21:10)
[2019-12-19] MEDS: CALCIUM ACETATE 667 MG TAB PO SCH ×3 (08:52→17:38)
[2019-12-19] MEDS: ASPIRIN 81 MG TAB.CHEW PO SCH (08:52)
--- NOTE | 2019-12-19 08:52 | NUR ---
ADMINISTERED SCHED MED PRESCRIBED PER MD ORDER. PT TOLERATED WELL. MEDICATION EDUCATION PERFORMED. PT VERBALIZED UNDERSTANDING. SAFETY MEASURES IN PLACE. WILL CONTINUE TO MONITOR
[2019-12-19] MEDS: amLODIPine 5 MG TAB PO SCH (08:53)
[2019-12-19] MEDS: LACTOBACILLUS RHAMNOSUS GG 1 EACH CAP PO SCH (08:53)
[2019-12-19] MEDS: VITAMIN B COMPLEX W/C 1 TAB PO SCH (08:53)
[2019-12-19] MEDS: GABAPENTIN 300 MG CAP PO SCH (08:54)
[2019-12-19] MEDS: FOLIC ACID 1 MG TAB PO SCH (08:54)
[2019-12-19] MEDS: CARVEDILOL 12.5 MG TAB PO SCH ×2 (08:55→21:10)
--- NOTE | 2019-12-19 11:21 | NUR ---
12/19/19 RD INITIAL ASSESSMENT COMPLETED PLEASE REFER TO NUTRITION ASSESSMENT UNDER CARE ACTIVITY FOR ESTIMATED NUTRITIONAL NEEDS. 1. [facility] CCHO 60GM AND RENAL DIET TOLERATED 2. RECOMMEND NEPRO ONCE DAILY 3. RD PROVIDED NUTRITION EDUCATION RESOURCES ON RENAL DIET IN [place] 4. RD TO FOLLOW-UP 3-5 DAYS, MODERATE RISK AVERY CADET, RD
[2019-12-19 12:00] VITALS: BP 112/64
--- NOTE | 2019-12-19 12:24 | NUR ---
ADMINISTERED SCHED MED PRESCRIBED PER MD ORDER. PT TOLERATED WELL. MEDICATION EDUCATION PERFORMED. PT VERBALIZED UNDERSTANDING. SAFETY MEASURES IN PLACE. WILL CONTINUE TO MONITOR
--- NOTE | 2019-12-19 14:04 | NUR ---
Malted Milk Mixer Note: Basic Screen: Yes High Risk DC Screen Bunk Foss: CHRISTAL Ellsworth Relationship: Pre-Admission Living Arrangements: Lives with Other Prior ADL Independent Current Home Health Name/Tel: UNKNOWN Current DME/02 Name/Tel: [facility] Current Hospice Name/Tel: N/A Current Dialysis Name/Tel: [facility] Healthcare Decision Maker: Patient Advance Directive No Physician Orders for Life Sustaining Treatment Form No Patient/Family Have Educational Needs No Information Taught: Advance Directive Person Taught: Patient Teaching Tools: Verbal Factors Affecting Learning: None Participation Level: Refused Evaluation: Verbalizes Understanding Needs Additional Education: No Discipline: Case Mgt/Social Svcs Tentative Discharge Plan/Destination: No Needs Identified Will require assistance post discharge: No Referred to Warehouse Order Picker: No Tentative Discharge Plan Summary: Patient is a 59-year-old female admitted for persistent hyperkalemia. Patient has PMHX of ESRD on HD, diabetes, and hypertension. Patient was admitted from home where she lives with her . SW met with patient at bedside to verify demographics. Patient stated that she is unsure if she receives home health but states that nurses come in to her residence. Patient stated that she receives dialysis from [facility]. Patient stated she is independent with her ADLs and reported no history of mental health and no current substance abuse. Tentative discharge plan is for patient to return home. No further needs identified. Signature: ALIYA Argueta Date: Dec 19, 2019 Time: 14:03
--- NOTE | 2019-12-19 15:55 | NUR ---
PT TALKING ON THE PHONE TO FAMILY. ABLE TO MAKE NEEDS KNOWN. RESPIRATIONS EVEN AND UNLABORED WITH NO SOB OR RESPIRATORY DISTRESS. SKIN WARM AND DRY TO TOUCH. SAFETY MEASURES IN PLACE. WILL CONTINUE TO MONITOR
[2019-12-19 16:00] VITALS: BP 131/56
[2019-12-19] MEDS: ACETAMINOPHEN 325 MG TAB PO PRN ×2 (17:40→21:09)
--- NOTE | 2019-12-19 17:46 | NUR ---
ADMINISTERED SCHED MED PRESCRIBED PER MD ORDER. PT TOLERATED WELL. MEDICATION EDUCATION PERFORMED. PT VERBALIZED UNDERSTANDING. SAFETY MEASURES IN PLACE. WILL CONTINUE TO MONITOR
--- NOTE | 2019-12-19 19:00 | NUR ---
ENDORSED AT BEDSIDE TO NIGHTSHIFT NURSE. PT IS STABLE
--- NOTE | 2019-12-19 19:01 | NUR ---
RECEIVED REPORT FROM DAYSHIFT NURSE. PATIENT IN BED RESTING. RESPIRATIONS EVEN AND UNLABORED. SKIN WARM AND DRY. DENIES ANY PAIN OR DISCOMFORT. HAS IV SITE LAC 20G CLEAN, DRY, AND INTACT. SAFETY MEASURES IN PLACE. CALL LIGHT WITHIN REACH. WILL CONTINUE TO MONITOR
[2019-12-19 20:00] VITALS: BP 125/45
[2019-12-19] MEDS: NACL 0.9% 1,000 ML IV SCH (20:01)
[2019-12-19] MEDS: ATORVASTATIN 20 MG TAB PO SCH (21:10)
--- NOTE | 2019-12-19 21:15 | NUR ---
PATIENT IN BED, ON SEMI-FOWLERS POSITION. VITAL SIGNS STABLE. ON O2 2LPM/NC. SCHEDULED MEDICATIONS GIVEN ORDERED. PATIENT COMPLAINS OF HEADACHE. TYLENOL GIVEN ORDERED. SAFETY MEASURES IN PLACE. BED IN LOW POSITION, BED ALARM ON, SIDE RAILS RAISED, CALL LIGHT WITHIN REACH. WILL CONTINUE TO MONITOR.
[2019-12-20] VITALS: BP 115/48
[2019-12-20] MEDS ORDERED: CRUSHER, PILL MC ONE (00:01)
[2019-12-20] MEDS: METOCLOPRAMIDE 10 MG TAB PO SCH ×3 (00:06→12:09)
--- NOTE | 2019-12-20 00:07 | NUR ---
ROUNDS DONE. PATIENT IN BED SLEEPING. PATIENT DIFFICULT TO WAKE BUT RESPONSIVE TO PAIN. VITAL SIGNS WITHIN NORMAL LIMITS. BLOOD SUGAR 192. O2 2LPM/NC IN PLACE. WILL CONTINUE TO MONITOR.
--- NOTE | 2019-12-20 00:08 | NUR ---
PATIENT NOTED DEEP SLEEPER. WOKE UP WHEN APPLIED TO NAILBEDS AND STATED SHE'S SLEEPING. CHARGE NURSE AWARE. SAFETY MEASURES IN PLACE. SIDE RAILS RAISED, BED IN LOW POSITION, CALL LIGHT WITHIN REACH. WILL CONTINUE TO MONITOR
--- NOTE | 2019-12-20 01:36 | NUR ---
ROUNDS DONE. PATIENT SLEEPING IN BED. O2 IN PLACE. NO SIGNS AND SYMPTOMS OF DISTRESS NOTED. SAFETY MEASURES IN PLACE. WILL CONTINUE TO MONITOR.
--- NOTE | 2019-12-20 03:21 | NUR ---
PATIENT IN BED SLEEPING. ON O2 2LPM/NC. NO SIGNS AND SYMPTOMS OF DISTRESS NOTED. SAFETY MEASURES IN PLACE. BED IN LOW POSITION, SIDE RAILS RAISED, CALL LIGHT WITHIN REACH. WILL CONTINUE TO MONITOR.
[2019-12-20 04:00] VITALS: BP 128/83
--- NOTE | 2019-12-20 04:30 | NUR ---
PATIENT IN BED. SCHEDULED MEDICATIONS GIVEN. VITAL SIGNS STABLE. NO SIGNS AND SYMPTOMS OF DISTRESS NOTED. SAFETY MEASURES IN PLACE. WILL CONTINUE TO MONITOR.
[2019-12-20] MEDS: BLOOD GLUCOSE MONITORING 1 DEV DEV FS SCH ×3 (05:45→16:27)
[2019-12-20 06:08] LABS: ANION GAP 12.4 (8-16); POTASSIUM 4.4 mmol/L (3.5-5.1)
[2019-12-20 06:15] LABS: BASOPHILS % (AUTO) 0.1 % (0.0-2.0); EOSINOPHILS # (AUTO) 0.8 K/uL (0-0.4); EOSINOPHILS % (AUTO) 8.1 % (0.0-4.0); HEMATOCRIT 31.8 % (36-48); HEMOGLOBIN 10.1 g/dL (12.0-16.0); LYMPHOCYTES # (AUTO) 4.3 K/uL (2.5-16.5); MAGNESIUM 2.4 mg/dL (1.8-2.4); MEAN CORPUSCULAR HEMOGLOBIN 28 pg (27-31); MEAN CORPUSCULAR HGB CONC 32 g/dL (33-37); MEAN CORPUSCULAR VOLUME 88.6 fL (80-94); MONOCYTES # (AUTO) 0.7 K/uL (0.8-1.0); NEUTROPHILS # (AUTO) 4.2 K/uL (1.8-7.7); NEUTROPHILS % (AUTO) 41.8 % (42.2-75.2); PHOSPHORUS 8.2 mg/dL (2.5-4.9); PLATELET COUNT (AUTO) 152 K/uL (140-450); RED CELL DISTRIBUTION WIDTH 15.4 % (11.6-13.7)
[2019-12-20 06:46] LABS: CREATININE 8.3 mg/dL (0.6-1.3)
--- NOTE | 2019-12-20 07:15 | NUR ---
ENDORSED PATIENT TO DAY SHIFT NURSE. PLAN OF CARE DISCUSSED. PATIENT IN STABLE CONDITION
--- NOTE | 2019-12-20 07:25 | NUR ---
RECEIVED REPORT FROM GIS PROGRAMMER NURSE, ARI, FOR CONTINUITY OF CARE. PT IS LYING IN BED AA&OX3. RESPIRATIONS ARE EVEN AND UNLABORED, BREATHING TO 2L NC. SKIN COLOR IS APPROPRIATE FOR ETHNICITY. IV ON LEFT FOREARM IS PATENT, AND INTACT. RT DIALYSIS DIVINA CATHETER IS INTACT. SKIN INTACT. REVIEWED PLAN OF CARE WITH PATIENT. SAFETY MEASURES IN PLACE, CALL LIGHT WITHIN REACH, BED IN LOW POSITIOIN, BED ALARM ON. TELE MONITOR ATTACHED. NO DISTRESS NOTED. WILL CONTINUE TO MONITOR.
[2019-12-20 08:28] VITALS: BP 129/60
[2019-12-20] MEDS: CALCIUM ACETATE 667 MG TAB PO SCH ×2 (09:16→13:00)
[2019-12-20] MEDS: VITAMIN B COMPLEX W/C 1 TAB PO SCH (09:17)
[2019-12-20] MEDS: LACTOBACILLUS RHAMNOSUS GG 1 EACH CAP PO SCH (09:17)
[2019-12-20] MEDS: ASPIRIN 81 MG TAB.CHEW PO SCH (09:17)
[2019-12-20] MEDS: FOLIC ACID 1 MG TAB PO SCH (09:17)
[2019-12-20] MEDS: DOCUSATE SODIUM 100 MG GELCAP PO SCH (09:17)
[2019-12-20] MEDS: GABAPENTIN 300 MG CAP PO SCH (09:18)
[2019-12-20] MEDS: amLODIPine 5 MG TAB PO SCH (09:30)
[2019-12-20] MEDS: CARVEDILOL 12.5 MG TAB PO SCH (09:30)
--- NOTE | 2019-12-20 09:30 | NUR ---
PT'S SCHEDULED MEDS WERE GIVEN. BP MED WAS HELD PENDING DIALYSIS TODAY. PT TOLERATED PO MEDS WELL. MEDICATION EDUCATION GIVEN, PT VERBALIZED UNDERSTANDING. NO DISTRESS NOTED. INFORMED PT THAT SHE WILL BE DC HOME TODAY AND PT AWARE AND CALLED TO FIND OUT TIME FOR FINANCIAL AID MANAGER. PT ALSO STATED SHE WANTS TO GET DIALYSIS HERE BEFORE DC. WILL CALL DISABILITY SPECIALIST TO FIND OUT ABOUT TIME. TELE MONITOR ATTACHED. SAFETY MEASURES IN PLACE. WILL CONTINUE TO MONITOR.
--- NOTE | 2019-12-20 09:36 | NUR ---
CALLED DIALYSIS NURSE, ROMMEL, OF PATIENT'S DISCHARGE TODAY. ROMMEL STATED THAT SHE WILL BE HERE AROUND 1100 TO PERFORM DIALYSIS, AND DIALYSIS SHOULD BE COMPLETED BY 1500. PT WAS INFORMED THAT SHE CAN ARRANGE FOR A PICKUP TIME BY HER BETWEEN 1500 AND 1600.
--- NOTE | 2019-12-20 11:00 | NUR ---
PT IS SITTING UP IN BED, AWAKE, AND WATCHING TV. TELE MONITOR ATTACHED. SAFETY MEASURES IN PLACE. NO DISTRESS NOTED. WILL CONTINUE TO MONITOR.
[2019-12-20 12:00] VITALS: BP 151/57
[2019-12-20] MEDS ORDERED: ATOR20TA40 PO (12:02)
[2019-12-20] MEDS ORDERED: PHO667 PO (12:02)
--- NOTE | 2019-12-20 12:18 | NUR ---
PT'S SCHEDULED MEDICATION GIVEN. PT TOLERATED PO MED WELL. MED EDUCATION GIVEN, PT VERBALIZED UNDERSTANDING. BLOOD GLUCOSE CHECKED, 181. WILL ADMINISTER COVERAGE. PT IS IN DIALYSIS, DIALYSIS NURSE IS AT BEDSIDE. NO DISTRESS NOTED. TELE MONITOR ATTACHED. SAFETY MEASURES IN PLACE. WILL CONTINUE TO MONITOR.
[2019-12-20] MEDS: INSULIN LISPRO SLIDING SCALE 100 UNITS/ML VIAL SUBQ PRN ×2 (12:23→16:28)
--- NOTE | 2019-12-20 13:12 | NUR ---
PT IS RECEIVING DIALYSIS. DIALYSIS NURSE IS AT BEDSIDE. DR. SHOEMAKER SPOKE WITH PT ABOUT UPCOMING DISCHARGE. NO DISTRESS NOTED. TELE MONITOR ATTACHED. SAFETY MEASURES IN PLACE. WILL CONTINUE TO MONITOR.
--- NOTE | 2019-12-20 15:17 | NUR ---
SITE SAFETY MANAGER ADMINISTERED 10,000 UNIT OF [place], UNABLE TO SCAN DUE TO SHE THREW THE EMPTY BOTTLES IN THE BIN, MANUALLY ENTER. DIALYSIS TOOK OUT 3 LITERS. PT'S 1300 MEDICATION WAS HELD, DUE TO DIALYSIS. HELD BP MEDS BECAUSE BLOOD PRESURE WAS TAKEN, AND WAS LOW; 105/40. PT STATED THAT HER IS PICKING HER UP AT 1600. PT IS SITTING UP IN BED. NO DISTRESS NOTED. TELE MONITOR ATTACHED. SAFETY MEASURES IN PLACE. WILL CONTINUE TO MONITOR.
--- NOTE | 2019-12-20 16:08 | NUR ---
DISCHARGE EDUCATION PROVIDED TO PT AT BEDSIDE. EDUCATED PT ON MD FOLLOW UP, SEEK MEDICAL HELP IN CASE OF EMERGENCY, HOME HEALTH WITH PHYSICAL THERAPY, MEDICATION REGIMEN, SIDE EFFECTS AND DIET. ANSWERED ALL PT'S QUESTIONS AND PT VERBALIZED UNDERSTANDING. PT WAS AWARE THAT HER PRESCRIPTION SEND TO HER PREFERRED PHARMACY. PT IS CURRENT WITH BOTH VACCINES. WORKFORCE ADVISOR IS ASSISTING PT TO CHANGE INTO HER OWN CLOTHES. NO SIGNS OF DISTRESS NOTED. AWAITING FOR TO ARRIVES TO HOSPITAL FOR DISCHARGE. TELE MONITOR ATTACHED. SAFETY MEASURES IN PLACE.
--- NOTE | 2019-12-20 16:28 | NUR ---
PT'S BLOOD SUGAR WAS CHECK WITH A RESULT OF 312. INSULIN COVERAGE PROVIDED. MED EDUCATION WAS GIVEN, PT VERBALIZED UNDERSTANDING. NO DISTRESS NOTED. SAFETY MEASURES IN PLACE.
--- NOTE | 2019-12-20 17:12 | NUR ---
CALLED PT'S MAORI [phone] FOR SOLE TIER TIME AND NO ANSWER, VOICE MAIL BOX IS NOT SET UP.
--- NOTE | 2019-12-20 17:50 | NUR ---
REMOVED ALL ARM BAND AND IV, IV CANNULA INTACT AND COMPLETE. NO BLEEDING ON IV SITE. REMOVED TELE BOX AND RETURN TO CONTACT CENTER DIRECTOR. PT TOOK ALL HER BELONGINGS HOME WITH HER. CHRIS PARRY ESCORTED PT TO FRONT LOBBY WITH WHEELCHAIR. PT IS GOING TO DC HOME AT THIS TIME IN STABLE CONDITION.
== END 2019-12-20 17:50 | disposition home or self-care (01) | DRG 177 ==
LOC: MED 14:23 → EDBD 14:23 → MTU 17:52
PROVIDERS: ADMIT General Practice; ATTEND General Practice
PROC: 5A1D70Z Performance of Urinary Filtration, Intermittent, Less than 6 Hours Per Day (ICD-10-PCS; principal; 2019-12-16)
PROC: 5A1D70Z Performance of Urinary Filtration, Intermittent, Less than 6 Hours Per Day (ICD-10-PCS; 2019-12-18)
PROC: 5A1D70Z Performance of Urinary Filtration, Intermittent, Less than 6 Hours Per Day (ICD-10-PCS; 2019-12-20)
DX: J69.0 Pneumonitis due to inhalation of food and vomit (principal); I21.A1 Myocardial infarction type 2; G93.41 Metabolic encephalopathy; E43 Unspecified severe protein-calorie malnutrition; N17.0 Acute kidney failure with tubular necrosis; N18.6 End stage renal disease; I12.0 Hypertensive chronic kidney disease with stage 5 chronic kidney disease or end stage renal disease; E11.649 Type 2 diabetes mellitus with hypoglycemia without coma; E11.43 Type 2 diabetes mellitus with diabetic autonomic (poly)neuropathy; Z68.30 Body mass index [BMI] 30.0-30.9, adult; Z99.2 Dependence on renal dialysis; E11.22 Type 2 diabetes mellitus with diabetic chronic kidney disease; E87.5 Hyperkalemia; I25.10 Atherosclerotic heart disease of native coronary artery without angina pectoris; E78.5 Hyperlipidemia, unspecified; E11.40 Type 2 diabetes mellitus with diabetic neuropathy, unspecified; K31.84 Gastroparesis; E66.9 Obesity, unspecified; E83.39 Other disorders of phosphorus metabolism; E83.41 Hypermagnesemia; Z87.891 Personal history of nicotine dependence
CPT/HCPCS: 36415; 70450; 71045; 80048; 80053; 80202; 80305; 81003; 82140; 82150; 82550; 82948; 83036; 83605; 83690; 83735; 83880; 84100; 84439; 84443; 84484; 85025; 85610; 85730; 87040; 87081; 87804; 90935; 92610; 93005; 96361; 96365; 97110; 97112; 97116; 97530; 99291; C1758; G0480; G0482; J0360; J0696; J1644; J1815; J3370; J7030; J7060; J8597; Q0092

== ENCOUNTER 2020-03-08 16:05 | Inpatient (IN) | payer OTHER, SELFPAY ==
[~2020-03-08] VITALS: Ht 157.5 cm; Wt 68.9 kg
[~2020-03-08 16:05] MED LIST: AMLO10TA PO; ASPI-1822 PO; ATOR20TA40 PO; CARV12.5 PO; FOLI0.8T PO; GABA300C PO; METO-485 PO; PHO667 PO; [UNRECOGNIZED DRUG - CODE] PO
--- NOTE | 2020-03-08 16:24 | NUR ---
TAKEN TO BED 1 BY W/C
[2020-03-08 16:27] VITALS: BP 199/84
--- NOTE | 2020-03-08 16:42 | NUR ---
59 YO FEMALE CO DYSPNEA 91% RA, PT PRESENTS IN RESPIRATORY DISTRESS, FEBRILE, TACHYPNIC 28 R/R, ELEVATED BP. PT A/OX2. PER TAKEN TO ER INSTEAD OF DIALYSIS DUE TO S/S. DROPPED OFF PT, NOT AT BEDSIDE. PLACED ON 4L NC. FULL FOWLERS.
[2020-03-08 17:27] LABS: BASOPHILS # (AUTO) 0.1 K/uL (0.00-0.22); BASOPHILS % (AUTO) 0.5 % (0.0-2.0); EOSINOPHILS # (AUTO) 0.2 K/uL (0-0.4); EOSINOPHILS % (AUTO) 1.5 % (0.0-4.0); HEMATOCRIT 43.5 % (36-48); HEMOGLOBIN 14.2 g/dL (12.0-16.0); LYMPHOCYTES # (AUTO) 1.5 K/uL (2.5-16.5); LYMPHOCYTES % (AUTO) 12.4 % (20.5-51.1); MEAN CORPUSCULAR HEMOGLOBIN 29 pg (27-31); MEAN CORPUSCULAR HGB CONC 33 g/dL (33-37); MEAN CORPUSCULAR VOLUME 89.8 fL (80-94); MONOCYTES # (AUTO) 0.3 K/uL (0.8-1.0); MONOCYTES % (AUTO) 2.9 % (1.7-9.3); NEUTROPHILS # (AUTO) 9.8 K/uL (1.8-7.7); NEUTROPHILS % (AUTO) 82.7 % (42.2-75.2); PLATELET COUNT (AUTO) 122 K/uL (140-450); RED BLOOD CELL COUNT(AUTO) 4.85 MIL/uL (4.20-5.40); RED CELL DISTRIBUTION WIDTH 14.7 % (11.6-13.7); WHITE BLOOD COUNT (AUTO) 11.8 K/uL (4.8-10.8)
--- NOTE | 2020-03-08 17:35 | NUR ---
JONES VIRUS SWAB COLLECTED AND SENT TO LAB.
[2020-03-08 17:49] LABS: ANION GAP 22.1 (8-16); CARBON DIOXIDE 20.9 mmol/L (21-32); TOTAL BILIRUBIN 0.4 mg/dL (0.0-1.0)
[2020-03-08 17:52] LABS: CREATININE 12.2 mg/dL (0.6-1.3)
[2020-03-08] MEDS ORDERED: DOCUSATE SODIUM 100 MG GELCAP PO PRN (18:25)
[2020-03-08] MEDS ORDERED: HYDROcodone/APAP 5/325 MG 1 TAB TAB PO PRN (18:25)
[2020-03-08] MEDS ORDERED: MORPHINE SULFATE 2 MG/ML SYR IVP PRN (18:25)
[2020-03-08] MEDS ORDERED: ONDANSETRON 4 MG/2 ML VIAL IM/IVP PRN (18:25)
--- NOTE | 2020-03-08 18:51 | NUR ---
PT IN BED. 18G IV ESTABLISHED.
[2020-03-08 19:41] LABS: PROTHROMBIN TIME 10.2 secs (10.8-13.4)
[2020-03-08 19:44] LABS: MAGNESIUM 2.7 mg/dL (1.8-2.4); PHOSPHORUS 7.2 mg/dL (2.5-4.9); THYROID STIMULATING HORMONE 4.09 uIU/mL (0.34-3.74)
--- NOTE | 2020-03-08 20:41 | NUR ---
PATIENT WAS TRANSPORTED ONTO THE UNIT VIA GURNEY ESCORTED BY ED NURSE. OBTAINED BEDSIDE SHIFT REPORT. PATIENT WAS AWAKE WITH ALOC. AAOX1. SKIN WAS INTACT, IV PATENT, SHE WAS BROUGHT TO THE FLOOR WITH SUPPLEMENTAL O2 AT 4L. PATIENT MAINTAINED AT THAT RATE AND HAS AN SPO2 AT 100% WITHOUT O2 PATIENT FEELS LIKE SHE "CANT BREATHE" TELE MONITOR ATTACHED AND CALL LIGHT WITHIN REACH. PATIENT WILL OBTAIN HEMODIALYSIS THIS EVENING. WILL CONTINUE TO MONITOR
--- NOTE | 2020-03-08 20:41 | NUR ---
Patient will be admitted to care of DR. JARAMILLO. Admited to TELE. Will go to room 121B. Belongings list completed. Report to SOHAN DOWNS.
[2020-03-08] MEDS: CARVEDILOL 12.5 MG TAB PO SCH (21:00)
--- NOTE | 2020-03-08 21:56 | NUR ---
CALLED SPOUSE OBTAINED VERBAL CONSENT FROM HIM TO COMPLETE DIALYSIS. AT THE TIME OF THE CALL CHARGE NURSE BLADIMIR WITNESSED VERBAL CONSENT. ON THE PHONE THE PATIENT'S SPOUSE ALSO INFORMED ME THAT WE HAVE HIS PERMISSION TO SPEAK WITH HIS DAUGHTER REGARDING HER MOTHERS CARE. SHE HAS HIS AUTHORIZATION TO MAKE DECISIONS FOR HER MOTHER.
--- NOTE | 2020-03-08 22:37 | NUR ---
DIALYSIS BEGAN. PATIENT APPEARS TO BE TOLERATING IT WELL NO SIGNS OF DISTRESS NOTED. HELD BP MED WILL ADMINISTER STATIN
[2020-03-08] MEDS: ATORVASTATIN 20 MG TAB PO SCH (23:00)
--- NOTE | 2020-03-08 23:00 | NUR ---
ADMINISTERED 2100 MEDICATION LIPITOR AT 2300. DURING DIALYSIS. PATIENT TOLERATED WELL NO SIGNS OF DISTRESS NOTED. RESPIRATIONS EVEN AND UNLABORED ALL MONITORS ATTACHED. WILL CONTINUE TO MONITOR
[2020-03-09] MEDS ORDERED: DEXTROSE 50% 50 ML SYR IVP PRN (00:35)
[2020-03-09] MEDS: METOCLOPRAMIDE 10 MG TAB PO SCH ×5 (00:58→23:08)
--- NOTE | 2020-03-09 02:00 | NUR ---
DIALYSIS WAS COMPLETED PATIENT TOLERATED WELL. NO SIGNS OF DISTRESS NOTED. OUTPUT RECEIVED WAS 3L. POST BP 153/68 AND HR 81. ALL MONITORS ATTACHED AND SAFETY MEASURES IN PLACE WILL CONTINUE TO MONITOR
[2020-03-09 04:00] VITALS: BP 132/76
--- NOTE | 2020-03-09 04:18 | NUR ---
ROUNDING, OBTAINED AM VITALS AND ASSISTED RATING EXAMINER WITH AM CARE AND BED CHANGE. PATIENT TOLERATED WELL WILL CONTINUE TO MONITOR
--- NOTE | 2020-03-09 05:30 | NUR ---
ADMINISTERED AM MEDICATIONS AND OBTAINED AM BS. RECEIVED A BEDSIDE BS OF 184 WILL PROVIDE COVERAGE PER MD ORDER. ALL MONITORS ATTACHED AND CALL LIGHT WITHIN REACH. WILL CONTINUE TO MONITOR
[2020-03-09] MEDS: GABAPENTIN 100 MG CAP PO SCH ×3 (05:33→20:40)
[2020-03-09] MEDS: BLOOD GLUCOSE MONITORING 1 DEV DEV FS SCH ×4 (05:40→21:31)
[2020-03-09] MEDS: INSULIN LISPRO SLIDING SCALE 100 UNITS/ML VIAL SUBQ PRN ×3 (06:03→21:31)
--- NOTE | 2020-03-09 06:03 | NUR ---
ADMINISTERED COVERAGE PER MD ORDER. PATIENT TOLERATED WELL. WILL CONTINUE TO MONITOR
[2020-03-09 07:12] LABS: BASOPHILS # (AUTO) 0.1 K/uL (0.00-0.22); BASOPHILS % (AUTO) 0.7 % (0.0-2.0); EOSINOPHILS # (AUTO) 0.2 K/uL (0-0.4); EOSINOPHILS % (AUTO) 2.2 % (0.0-4.0); HEMATOCRIT 30.8 % (36-48); LYMPHOCYTES # (AUTO) 2.2 K/uL (2.5-16.5); LYMPHOCYTES % (AUTO) 20.3 % (20.5-51.1); MEAN CORPUSCULAR HEMOGLOBIN 29 pg (27-31); MEAN CORPUSCULAR HGB CONC 32 g/dL (33-37); MONOCYTES # (AUTO) 0.4 K/uL (0.8-1.0); MONOCYTES % (AUTO) 3.5 % (1.7-9.3); NEUTROPHILS # (AUTO) 7.8 K/uL (1.8-7.7); NEUTROPHILS % (AUTO) 73.3 % (42.2-75.2); PLATELET COUNT (AUTO) 187 K/uL (140-450); RED BLOOD CELL COUNT(AUTO) 3.46 MIL/uL (4.20-5.40); RED CELL DISTRIBUTION WIDTH 14.3 % (11.6-13.7); WHITE BLOOD COUNT (AUTO) 10.6 K/uL (4.8-10.8)
--- NOTE | 2020-03-09 07:26 | NUR ---
RECEIVED PT FROM MIXING PLANT DUMPER RN FOR CONTINUITY OF CARE. PT IS AAOX2, COOPERATIVE BUT CONFUSED. PT IS ON 4L O2 VIA NC. PT SATING 100%. PT SKIN IS INTACT. PT HAS LEFT WRIST 18G SL. PT ALSO HAS RIGHT AV SHUNT AND RIGHT CHEST TUNNELED CATH FOR HD ACCESS. PT ON RENAL DIET. PT NEEDS PILLS CRUSHED AND PLACED IN APPLESAUCE. PT ON BEDREST. DISCUSSED POC WITH PT AND PT VERBALIZED UNDERSTANDING BUT WILL NEED FREQUENT REINFORCEMENT. ALL SAFETY MEASURES IN PLACE. PT ON DROPLET PRECAUTIONS. WILL ROUND FREQUENTLY ON PT THROUGHOUT THE SHIFT.
--- NOTE | 2020-03-09 07:30 | NUR ---
ENDORSED PATIENT TO DAYSHIFT NURSE FOR CONTINUITY OF CARE. PATIENT IN STABLE CONDITION
[2020-03-09 08:00] VITALS: BP 165/71
[2020-03-09] MEDS: CALCIUM ACETATE 667 MG TAB PO SCH ×3 (08:00→17:22)
[2020-03-09 08:12] LABS: POTASSIUM 3.8 mmol/L (3.5-5.1)
[2020-03-09 08:13] LABS: ANION GAP 12.9 (8-16); CARBON DIOXIDE 25.9 mmol/L (21-32)
[2020-03-09 08:17] LABS: CREATININE 7.4 mg/dL (0.6-1.3)
[2020-03-09 08:28] LABS: MAGNESIUM 2.1 mg/dL (1.8-2.4); PHOSPHORUS 5.3 mg/dL (2.5-4.9)
[2020-03-09] MEDS ORDERED: GABAPENTIN 300 MG CAP PO SCH (09:00)
[2020-03-09] MEDS: CARVEDILOL 12.5 MG TAB PO SCH ×2 (09:16→20:40)
[2020-03-09] MEDS: VITAMIN B COMPLEX W/C 1 TAB PO SCH (09:16)
[2020-03-09] MEDS: ASPIRIN 81 MG TAB.CHEW PO SCH (09:16)
[2020-03-09] MEDS: FOLIC ACID 1 MG TAB PO SCH (09:17)
[2020-03-09] MEDS: amLODIPine 5 MG TAB PO SCH (09:17)
--- NOTE | 2020-03-09 09:37 | NUR ---
ADMINISTERED MORNING MEDS TO PT. PT TOLERATED WELL. ALL NEEDS MET. WILL CONTINUE TO ROUND FREQUENTLY ON PT.
[2020-03-09 10:00] LABS: CHOL/HDL RATIO 4.4 (1-4.5)
[2020-03-09 12:00] VITALS: BP 141/62
--- NOTE | 2020-03-09 13:20 | NUR ---
PT GETTING OUT OF BED AFTER BEING TOLD NOT TO DUE TO DANGER OF FALLING. PT NOT UNDERSTANDING SO RESTRAINTS WERE ORDERED BY MD. PT IN STABLE CONDITION. NO DISTRESS AT THIS TIME .
--- NOTE | 2020-03-09 15:47 | NUR ---
PT RESTING IN BED.ALL NEEDS MET.
[2020-03-09 15:57] LABS: BASOPHILS # (AUTO) 0.1 K/uL (0.00-0.22); BASOPHILS % (AUTO) 0.8 % (0.0-2.0); EOSINOPHILS # (AUTO) 0.4 K/uL (0-0.4); HEMATOCRIT 29.2 % (36-48); HEMOGLOBIN 9.4 g/dL (12.0-16.0); LYMPHOCYTES # (AUTO) 2.6 K/uL (2.5-16.5); LYMPHOCYTES % (AUTO) 27.1 % (20.5-51.1); MEAN CORPUSCULAR HEMOGLOBIN 29 pg (27-31); MEAN CORPUSCULAR HGB CONC 32 g/dL (33-37); MEAN CORPUSCULAR VOLUME 89.6 fL (80-94); MONOCYTES # (AUTO) 0.5 K/uL (0.8-1.0); MONOCYTES % (AUTO) 5.5 % (1.7-9.3); NEUTROPHILS % (AUTO) 62.6 % (42.2-75.2); PLATELET COUNT (AUTO) 153 K/uL (140-450); RED BLOOD CELL COUNT(AUTO) 3.25 MIL/uL (4.20-5.40); RED CELL DISTRIBUTION WIDTH 14.2 % (11.6-13.7); WHITE BLOOD COUNT (AUTO) 9.5 K/uL (4.8-10.8)
[2020-03-09 16:00] VITALS: BP 149/57
--- NOTE | 2020-03-09 17:17 | NUR ---
REMOVED RESTRAINTS TO TRY AND SEE IF PT WILL STAY IN BED. RESTRAINTS CANCELLED. PT CALM AT THIS TIME.
--- NOTE | 2020-03-09 18:49 | NUR ---
WILL ENDORSE TO RESIDENT PROGRAM SPECIALIST FOR CONTINUITY OF CARE. PT IN STABLE CONDITION AT THIS TIME.
--- NOTE | 2020-03-09 19:25 | NUR ---
RECEIVED BEDSIDE REPORT FROM DAY RN . PT IS AAOX2, COOPERATIVE BUT CONFUSED. PT IS ON 4L O2 VIA NC. PT SATING 98%. PT SKIN IS INTACT. PT HAS LEFT WRIST 18G SL. PT ALSO HAS RIGHT AV SHUNT AND RIGHT CHEST TUNNELED CATH FOR HD ACCESS. LAST HD YESTERDAY 03/08 WITH 3L OUTPUT. PT ON RENAL DIET. PT NEEDS PILLS CRUSHED AND PLACED IN APPLESAUCE. PT ON BEDREST. DISCUSSED POC WITH PT AND PT VERBALIZED UNDERSTANDING BUT WILL NEED FREQUENT REINFORCEMENT. ALL SAFETY MEASURES IN PLACE. ON DROPLET PRECAUTION FOR R/O COVID. CALL LIGHT IS WITHIN REACH. WILL ROUND FREQUENTLY ON PT THROUGHOUT THE SHIFT.
[2020-03-09 20:00] VITALS: BP 161/61
[2020-03-09] MEDS: ATORVASTATIN 20 MG TAB PO SCH (20:40)
--- NOTE | 2020-03-09 20:40 | NUR ---
VSS. BG 218 WILL GIVE COVERAGE. ALL RIGO MEDICATIONS CRUSHED AND GIVEN WITH APPLESAUCE. ALL SAFETY MEASURES ARE IN PLACE. WILL ROUND FREQUENTLY.
--- NOTE | 2020-03-09 23:08 | NUR ---
GAVE PT SANDWICH PER REQUEST. ADMINISTERED REGLAN PER ORDERS. VSS. ALL NEEDS MET. SAFETY MEASURES ARE IN PLACE. WILL CONTINUE TO MONITOR.
[2020-03-10] VITALS: BP 136/54
[2020-03-10] MEDS: ACETAMINOPHEN 325 MG TAB PO PRN ×2 (00:01→20:45)
--- NOTE | 2020-03-10 00:58 | NUR ---
PATIENT IS SLEEPING COMFORTABLY IN BED WITH EYES CLOSED. CALL LIGHT IS WITHIN REACH. WILL CONTINUE TO MONITOR.
--- NOTE | 2020-03-10 02:31 | NUR ---
PT IS SLEEPING COMFORTABLY IN BED WITH EYES CLOSED. CHEST RISE AND FALL NOTED. WILL CONTINUE TO MONITOR.
[2020-03-10 04:00] VITALS: BP 136/65
--- NOTE | 2020-03-10 04:15 | NUR ---
VITAL SIGNS ARE WITHIN NORMAL LIMITS. ALL SAFETY MEASURES ARE IN PLACE. CALL LIGHT IS WITHIN REACH.
[2020-03-10] MEDS: METOCLOPRAMIDE 10 MG TAB PO SCH ×3 (05:12→17:28)
[2020-03-10] MEDS: GABAPENTIN 100 MG CAP PO SCH ×3 (05:12→20:48)
[2020-03-10] MEDS: BLOOD GLUCOSE MONITORING 1 DEV DEV FS SCH ×4 (05:25→20:48)
[2020-03-10 07:19] LABS: BASOPHILS % (AUTO) 0.3 % (0.0-2.0); EOSINOPHILS # (AUTO) 0.4 K/uL (0-0.4); EOSINOPHILS % (AUTO) 4.6 % (0.0-4.0); HEMATOCRIT 28.9 % (36-48); HEMOGLOBIN 9.4 g/dL (12.0-16.0); LYMPHOCYTES # (AUTO) 3.3 K/uL (2.5-16.5); LYMPHOCYTES % (AUTO) 34.5 % (20.5-51.1); MEAN CORPUSCULAR HEMOGLOBIN 29 pg (27-31); MEAN CORPUSCULAR HGB CONC 33 g/dL (33-37); MEAN CORPUSCULAR VOLUME 89.8 fL (80-94); MONOCYTES # (AUTO) 0.5 K/uL (0.8-1.0); MONOCYTES % (AUTO) 5.1 % (1.7-9.3); NEUTROPHILS # (AUTO) 5.3 K/uL (1.8-7.7); NEUTROPHILS % (AUTO) 55.5 % (42.2-75.2); PLATELET COUNT (AUTO) 122 K/uL (140-450); RED BLOOD CELL COUNT(AUTO) 3.22 MIL/uL (4.20-5.40); RED CELL DISTRIBUTION WIDTH 14.3 % (11.6-13.7); WHITE BLOOD COUNT (AUTO) 9.5 K/uL (4.8-10.8)
--- NOTE | 2020-03-10 07:25 | NUR ---
GAVE BEDSIDE REPORT FROM DAY RN. PT ENDORSED IN STABLE CONDITION.
--- NOTE | 2020-03-10 07:26 | NUR ---
RECEIVED REPORT FROM EMERGENCY SERVICES PROFESSIONAL NURSE. PATIENT LYING DOWN IN BED SLEEPING, AROUSABLE BY VOICE. NO DISTRESS NOTED. AAOX1, CALM, COOPERATIVE, CONFUSED. RESPIRATIONS EVEN, UNLABORED, ON O2 4L/MIN VIA NC. SKIN COLOR APPROPRIATE TO ETHNICITY, WARM TO TOUCH. SKIN INTACT. RUARM AV FISTULA NOTED. RIGHT SUBCLAVIAN TUNNELED CATHETER NOTED. IV SITE INTACT, PATENT, AND ON SALINE LOCK. REVIEWED PLAN OF CARE WITH PATIENT. REINFORCEMENT NEEDED. SAFETY MEASURES IN PLACE, CALL LIGHT WITHIN REACH. WILL CONTINUE TO MONITOR.
[2020-03-10 08:00] VITALS: BP 156/63
[2020-03-10 08:05] LABS: ALBUMIN 2.3 g/dL (3.4-5.0); ANION GAP 16.5 (8-16); CARBON DIOXIDE 24.9 mmol/L (21-32); POTASSIUM 4.4 mmol/L (3.5-5.1); TOTAL BILIRUBIN 0.3 mg/dL (0.0-1.0)
[2020-03-10 08:10] LABS: CREATININE 8.7 mg/dL (0.6-1.3)
--- NOTE | 2020-03-10 08:29 | NUR ---
PATIENT HAS BEEN SCREENED AND CATEGORIZED HIGH NUTRITION RISK. PATIENT WILL BE SEEN WITHIN 1-2 DAYS OF ADMISSION. 03/09/20 03/10/[address]
[2020-03-10] MEDS: CARVEDILOL 12.5 MG TAB PO SCH ×2 (09:00→20:48)
[2020-03-10] MEDS: CALCIUM ACETATE 667 MG TAB PO SCH ×3 (09:07→17:28)
[2020-03-10] MEDS: ASPIRIN 81 MG TAB.CHEW PO SCH (09:07)
[2020-03-10] MEDS: FOLIC ACID 1 MG TAB PO SCH (09:07)
[2020-03-10] MEDS: amLODIPine 5 MG TAB PO SCH (09:07)
[2020-03-10] MEDS: VITAMIN B COMPLEX W/C 1 TAB PO SCH (09:07)
--- NOTE | 2020-03-10 09:10 | NUR ---
SCHEDULED MEDICATIONS DUE GIVEN. WILL CONTINUE TO MONITOR.
[2020-03-10 12:00] VITALS: BP 157/64
[2020-03-10] MEDS: INSULIN LISPRO SLIDING SCALE 100 UNITS/ML VIAL SUBQ PRN ×3 (12:45→20:47)
--- NOTE | 2020-03-10 12:46 | NUR ---
PATIENT SITTING IN BED WITH LUNCH TRAY IN FRONT. NO DISTRESS NOTED. SCHEDULED MEDICATIONS DUE GIVEN. WILL CONTINUE TO MONITOR.
--- NOTE | 2020-03-10 13:37 | NUR ---
03/10/20 RD INITIAL ASSESSMENT COMPLETED PLEASE REFER TO NUTRITION ASSESSMENT UNDER CARE ACTIVITY FOR ESTIMATED NUTRITIONAL NEEDS. 1. RECOMMEND RENAL, [address] TO FOLLOW UP IN 3-5 DAYS MODERATE RISK JOSE E ATK[address]SON RD
[2020-03-10 16:00] VITALS: BP 149/51
--- NOTE | 2020-03-10 17:33 | NUR ---
PATIENT LYING DOWN IN BED WATCHING TV. NO DISTRESS NOTED. DENIES ANY PAIN. SCHEDULED MEDICATIONS DUE GIVEN. WILL CONTINUE TO MONITOR.
--- NOTE | 2020-03-10 19:27 | NUR ---
GAVE REPORT TO CLASSIFICATION COUNSELOR NURSE FOR CONTINUITY OF CARE. PATIENT IN STABLE CONDITION.
--- NOTE | 2020-03-10 19:28 | NUR ---
RECEIVED BEDSIDE REPORT FROM DAY RN . PT IS AAOX3,. RESPIRATIONS ARE EQUAL AND UNLABORED ON ROOM AIR. LUNG SOUNDS ARE CLEAR. PT SKIN IS INTACT. PT HAS LEFT WRIST 18G SL. PT ALSO HAS RIGHT AV SHUNT AND RIGHT CHEST TUNNELED CATH FOR HD ACCESS. LAST HD YESTERDAY 03/08 WITH 3L OUTPUT. ORDER FOR HD TOMORROW. PT ON RENAL/CCHO DIET. PT NEEDS PILLS CRUSHED AND PLACED IN APPLESAUCE. PT ON BEDREST. DISCUSSED POC WITH PT AND PT VERBALIZED UNDERSTANDING BUT WILL NEED FREQUENT REINFORCEMENT. ALL SAFETY MEASURES IN PLACE. ON STANDARD PRECAUTION. CALL LIGHT IS WITHIN REACH. WILL ROUND FREQUENTLY ON PT THROUGHOUT THE SHIFT.
[2020-03-10 20:00] VITALS: BP 142/54
[2020-03-10] MEDS: ATORVASTATIN 20 MG TAB PO SCH (20:36)
--- NOTE | 2020-03-10 20:56 | NUR ---
VSS. BG 195 INSULIN PER SLIDING SCALE. RIGO MEDICATIONS GIVEN PER ORDERS. ADMINISTERED TYLENOL FOR KNEE PAIN 11/27 PT TOLERATED WELL. ASSISTED TO BATHROOM WITH UNSTEADY GAIT. PT BACK IN BED RESTING. ALL NEEDS MET. WILL CONTINUE TO MONITOR.
--- NOTE | 2020-03-10 22:00 | NUR ---
PATIENT IS RSTING COMFORTABLY IN BED WATCHING TV. CALL LIGHT IS WITHIN REACH.
--- NOTE | 2020-03-10 22:05 | NUR ---
RECEIVED PT IN STABLE CONDITION FROM SOHAN BOSS FOR CONTINUITY OF CARE.
--- NOTE | 2020-03-10 22:37 | NUR ---
DR. MELGAR IN TO SEE PT. NO CHANGE IN ORDERS CONTINUE TO MONITOR PER MD. GAVE BEDSIDE REPORT TO NEONATAL DOCTOR CHLOE. PT ENDORSED IN STABLE CONDITION.
--- NOTE | 2020-03-11 00:30 | NUR ---
MADE ROUNDS. PT ASLEEP. NO S/S OF ANY DISCOMFORT /PAIN NOTED.
[2020-03-11] MEDS: METOCLOPRAMIDE 10 MG TAB PO SCH ×3 (01:09→13:29)
[2020-03-11 01:12] VITALS: BP 149/64
--- NOTE | 2020-03-11 02:00 | NUR ---
PT HAD SOME JELLO. TOLERATED WELL.
[2020-03-11 03:55] VITALS: BP 159/61
[2020-03-11] MEDS: GABAPENTIN 100 MG CAP PO SCH ×2 (05:29→13:26)
[2020-03-11] MEDS: BLOOD GLUCOSE MONITORING 1 DEV DEV FS SCH ×2 (05:35→13:39)
--- NOTE | 2020-03-11 05:40 | NUR ---
BLOOD SUGAR 222. INSULIN COVERAGE GIVEN.
[2020-03-11] MEDS: INSULIN LISPRO SLIDING SCALE 100 UNITS/ML VIAL SUBQ PRN ×2 (05:53→13:43)
[2020-03-11 06:46] LABS: BASOPHILS % (AUTO) 0.4 % (0.0-2.0); EOSINOPHILS # (AUTO) 0.5 K/uL (0-0.4); EOSINOPHILS % (AUTO) 5.1 % (0.0-4.0); HEMATOCRIT 27.2 % (36-48); HEMOGLOBIN 8.8 g/dL (12.0-16.0); LYMPHOCYTES # (AUTO) 3.3 K/uL (2.5-16.5); LYMPHOCYTES % (AUTO) 32.7 % (20.5-51.1); MEAN CORPUSCULAR HEMOGLOBIN 29 pg (27-31); MEAN CORPUSCULAR HGB CONC 32 g/dL (33-37); MEAN CORPUSCULAR VOLUME 90.4 fL (80-94); MONOCYTES # (AUTO) 0.5 K/uL (0.8-1.0); MONOCYTES % (AUTO) 4.8 % (1.7-9.3); NEUTROPHILS # (AUTO) 5.8 K/uL (1.8-7.7); PLATELET COUNT (AUTO) 121 K/uL (140-450); RED CELL DISTRIBUTION WIDTH 14.3 % (11.6-13.7); WHITE BLOOD COUNT (AUTO) 10.2 K/uL (4.8-10.8)
[2020-03-11 06:57] LABS: CARBON DIOXIDE 22.2 mmol/L (21-32); POTASSIUM 4.2 mmol/L (3.5-5.1)
[2020-03-11 07:02] LABS: CREATININE 9.9 mg/dL (0.6-1.3)
--- NOTE | 2020-03-11 07:30 | NUR ---
ENDORSED PT IN STABLE CONDITION TO AM NURSE.
[2020-03-11] MEDS: CALCIUM ACETATE 667 MG TAB PO SCH ×2 (08:00→13:29)
--- NOTE | 2020-03-11 08:30 | NUR ---
RECEIVED REPORT FROM SOHAN SORENSEN FOR CONTINUITY OF CARE. PATIENT ALERT AWAKE NOT IN ANY DISTRESS NOTED. VITALS STABLE. WAITING FOR HER TRAY. SCHEDULE FOR DIALYSIS TODAY. CALLED CARNEY AND MADE AWARE. WILL CONTINUE TO MONITOR.
[2020-03-11 08:58] VITALS: BP 113/68
[2020-03-11] MEDS ORDERED: EPOETIN ALFA 10,000 UNITS/ML VIAL IV SCH (09:00)
[2020-03-11] MEDS: VITAMIN B COMPLEX W/C 1 TAB PO SCH (09:00)
[2020-03-11] MEDS: ASPIRIN 81 MG TAB.CHEW PO SCH (09:00)
[2020-03-11] MEDS: FOLIC ACID 1 MG TAB PO SCH (09:00)
--- NOTE | 2020-03-11 10:37 | NUR ---
ONGOING WITH DIALYSIS PATIENT ALERT AWAKE, ABLE TO MAKE NEEDS KNOW, SKIN WAMR TRO TOUCH RESP. EVEN AND UNLABORED,
[2020-03-11] MEDS ORDERED: GLIP5TAB4 PO (10:44)
[2020-03-11] MEDS: CARVEDILOL 12.5 MG TAB PO SCH (13:25)
[2020-03-11] MEDS: amLODIPine 5 MG TAB PO SCH (13:25)
--- NOTE | 2020-03-11 14:04 | NUR ---
PATIENT EATING AT THIS TIME ALERT, AWAKE, INQUIRING ABOUT HER DISCHARGE, , SKIN WARM TO TOUCH RESP. EVEN AND UNLABORED, EXPLAINED TO PT WILL WORK OUT THE DISCHARGED ORDER.
--- NOTE | 2020-03-11 14:04 | NUR ---
HEPARIN 5000 2X GIVEN BY DIALYSIS NURSE FOR THE DIALYSIS PORT
[2020-03-11 14:07] VITALS: BP 168/61
--- NOTE | 2020-03-11 15:56 | NUR ---
Discharge to home, picked up by via private car , patient alert, awake, oriented, skin warm to touch resp. even and unlabored, no SOB, instructed about the new meds Glipizide , patient and listened to the instruction,instructed to follow up with primary MD, Dr Cesar, per they will follow up, patient also assisted in the bathroom earlier and able to urinate, per patient is allergic to Morphine and that I should list it in the allergies.
--- NOTE | 2020-03-11 15:59 | NUR ---
DC PLANN[age] YRS OLD FEMALE PATIENT WAS ADMITTED FROM HOME WITH A DX OF SOB, R/O COVID. PATIENT HAS A HX OF, ON HEMODIALYSIS , HTN AND NEUROPATHY. CXR SHOWED BORDERLINE CARDIOMEGALY AND IMPROVED PERSISTENT MILD PULMONARY VASCULAR CONGESTION. COVID -19 TEST NEGATIVE . CONSULT[address] DR BOWLES RETOUCHER PHOTOENGRAVING. CONTINUED HOME MEDS. DC PLAN TO GO HOME WHEN STABLE CM TO FOLLOW
== END 2020-03-11 15:10 | disposition home or self-care (01) | DRG 640 ==
LOC: MED 16:05 → EEVIPCON 16:05 → MTU 18:21
PROVIDERS: ADMIT General Practice; ATTEND General Practice
PROC: 5A1D70Z Performance of Urinary Filtration, Intermittent, Less than 6 Hours Per Day (ICD-10-PCS; principal; 2020-03-08)
PROC: 5A1D70Z Performance of Urinary Filtration, Intermittent, Less than 6 Hours Per Day (ICD-10-PCS; 2020-03-10)
DX: E87.70 Fluid overload, unspecified (principal); N17.0 Acute kidney failure with tubular necrosis; G93.41 Metabolic encephalopathy; J96.01 Acute respiratory failure with hypoxia; N18.6 End stage renal disease; I13.2 Hypertensive heart and chronic kidney disease with heart failure and with stage 5 chronic kidney disease, or end stage renal disease; I69.354 Hemiplegia and hemiparesis following cerebral infarction affecting left non-dominant side; J98.11 Atelectasis; Z99.2 Dependence on renal dialysis; F17.210 Nicotine dependence, cigarettes, uncomplicated; Z03.818 Encounter for observation for suspected exposure to other biological agents ruled out; E78.5 Hyperlipidemia, unspecified; I25.10 Atherosclerotic heart disease of native coronary artery without angina pectoris; I50.9 Heart failure, unspecified; J45.909 Unspecified asthma, uncomplicated; E83.39 Other disorders of phosphorus metabolism; E83.41 Hypermagnesemia; D63.8 Anemia in other chronic diseases classified elsewhere; E11.65 Type 2 diabetes mellitus with hyperglycemia; E11.22 Type 2 diabetes mellitus with diabetic chronic kidney disease; E11.40 Type 2 diabetes mellitus with diabetic neuropathy, unspecified; Z90.49 Acquired absence of other specified parts of digestive tract; Z95.1 Presence of aortocoronary bypass graft; Z79.82 Long term (current) use of aspirin; Z79.899 Other long term (current) drug therapy; Z88.5 Allergy status to narcotic agent; I69.321 Dysphasia following cerebral infarction; Z91.14 Patient's other noncompliance with medication regimen
CPT/HCPCS: 36415; 71045; 80048; 80053; 82728; 82948; 83036; 83605; 83615; 83735; 83880; 84100; 84443; 84484; 85025; 85379; 85610; 85651; 85730; 86140; 87040; 87804; 93005; 99285; J0885; J1644; J7030; J8597; Q0092; U0003-CS

== ENCOUNTER 2020-07-22 20:59 | Inpatient (IN) | payer OTHER, SELFPAY ==
[~2020-07-22] VITALS: Ht 160 cm; Wt 70.3 kg
[2020-07-22 20:00] VITALS: BP 15/65
[~2020-07-22 20:59] MED LIST changes: +CALC667C12 PO; +GLIP5TAB4 PO; -PHO667 PO
--- NOTE | 2020-07-22 20:59 | NUR ---
biba to bed 12
[2020-07-22] MEDS ORDERED: NACL 0.9% 1,000 ML IV ONE (21:00)
--- NOTE | 2020-07-22 21:05 | NUR ---
ERMD AT BEDSIDE EVALUATING PT.
--- NOTE | 2020-07-22 21:05 | NUR ---
PT 59 Y/O FEMALE BIBA FROM HOME FOR C/O ALOC. PER EMS STATED PT WAS "WEAK ALL DAY AND MISSED HER DIALYSIS APPOINTMENT." PT NON VERBAL, EYES CLOSED AND WITHDRAWS FROM PAINFUL STIMULI. PUPILS SLUGGISH 4MM BILAT. PRIOR TO ARRIVAL ACCUCHECK 36. GLUCAGON IM AND D10 200ML GIVEN PRIOR TO ARRIVAL IN 20G L AC. R UPPER ARM SHUNT NOTED, THRILL FELT BURIT HEARD. PT PLACED ON DEVICE PROCESSING ENGINEER. PT ON 15L NON REBREATHER UPON ARRIVAL. BED LOCKED AND IN LOWEST POSTION. MEDHX: DM TYPE II, ESRD, HX OF CVA, TIA. ALLEGIES: MORPHINE.
--- NOTE | 2020-07-22 21:08 | NUR ---
EKG PERFORMED AT BEDSIDE. EKG READS SINUS TACHYCARDIA @ 101
--- NOTE | 2020-07-22 21:10 | NUR ---
Code brain called.
[2020-07-22 21:11] VITALS: BP 188/76
--- NOTE | 2020-07-22 21:14 | NUR ---
pt taken to CT via kaitlin
[2020-07-22] MEDS ORDERED: DEXTROSE 25% 10 ML SYR IVP ONE (21:15)
[2020-07-22] MEDS ORDERED: DEXTROSE 50% 50 ML SYR IVP ONE ×2 (21:22→21:25)
--- NOTE | 2020-07-22 21:28 | NUR ---
SPOKE WITH ON THE PHONE AND STATED CODE STATUS: FULL CODE.
--- NOTE | 2020-07-22 21:34 | NUR ---
LAB AT BEDSIDE.
[2020-07-22] MEDS ORDERED: FUROSEMIDE 40 MG/4 ML VIAL IVP ONE (21:50)
[2020-07-22 22:09] LABS: HEMATOCRIT 34.3 % (36-48); HEMOGLOBIN 10.8 g/dL (12.0-16.0); MEAN CORPUSCULAR HEMOGLOBIN 28 pg (27-31); MEAN CORPUSCULAR HGB CONC 32 g/dL (33-37); MEAN CORPUSCULAR VOLUME 90.1 fL (80-94); PLATELET COUNT (AUTO) 176 K/uL (140-450); RED BLOOD CELL COUNT(AUTO) 3.81 MIL/uL (4.20-5.40); WHITE BLOOD COUNT (AUTO) 21.1 K/uL (4.8-10.8)
[2020-07-22 22:15] LABS: APPEARANCE,URINE CLEAR (CLEAR); BILIRUBIN,URINE NEGATIVE (NEGATIVE); BLOOD, URINE 1+ (NEGATIVE); COLOR,URINE YELLOW (YELLOW); LEUKOCYTE ESTERASE ,URINE NEGATIVE (NEGATIVE); NITRITE, URINE NEGATIVE (NEGATIVE); UGLUCOSE TRACE (NEGATIVE)
[2020-07-22 22:22] LABS: ALBUMIN 3.3 g/dL (3.4-5.0); ANION GAP 23.4 (8-16); CARBON DIOXIDE 25.1 mmol/L (21-32); POTASSIUM 4.5 mmol/L (3.5-5.1); TOTAL BILIRUBIN 0.3 mg/dL (0.0-1.0)
--- NOTE | 2020-07-22 22:23 | NUR ---
RT AT BEDSIDE.
[2020-07-22 22:27] LABS: LYMPHOCYTES % (MANUAL) 4 % (20-46); MONOCYTES % (MANUAL) 8 % (5-12)
[2020-07-22] MEDS ORDERED: PIPERACILLIN/TAZOBACTAM 3.375 GM in DEXTROSE 5% 50 ML IV ONE (22:30)
[2020-07-22 22:33] LABS: CREATININE 10.8 mg/dL (0.6-1.3)
[2020-07-22] MEDS ORDERED: NACL 0.9% 2,000 ML IV ONE (22:35)
[2020-07-22] MEDS ORDERED: PIPERACILLIN/TAZOBACTAM 3.375 GM VIAL IV ONE (22:41)
[2020-07-22] MEDS ORDERED: INTUBATION KIT MC ONE (22:44)
[2020-07-22 22:47] LABS: RBC,URINE 0-5 /HPF (0-5)
[2020-07-22] MEDS ORDERED: PROPOFOL 1000 MG/100 ML PREMIX 100 ML IV ONE (22:48)
[2020-07-22 22:53] LABS: PROTHROMBIN TIME 10.3 secs (10.8-13.4)
--- NOTE | 2020-07-22 22:55 | NUR ---
ERMD PERFORMING INTUBATION PROCEDURE. RT AT BEDSIDE. PT ON CARIDAC MONITOR.
--- NOTE | 2020-07-22 23:00 | NUR ---
PROPROFOL STARTED AT 5MCG/KG/MIN. SEE IV SPREAD SHEET FOR FURTHER DETAILS.
[2020-07-22 23:24] VITALS: BP 15/65
[2020-07-22] MEDS ORDERED: PROPOFOL 1000 MG/100 ML PREMIX 100 ML IV STA (23:33)
--- NOTE | 2020-07-22 23:45 | NUR ---
XRAY AT BEDSIDE.
[2020-07-23] VITALS (85 sets, daily range): BP systolic 46–178; BP diastolic 18–92
--- NOTE | 2020-07-23 00:12 | NUR ---
KATELIND AND CHARGE NURSE ATTEMPTED TO TALK TO PT IN LOBBY. NO RESPONSE FROM LOBBY.
--- NOTE | 2020-07-23 00:25 | NUR ---
ATTEMPTED TO CALL TO GIVE UPDATE ON PT STATUS. NO ANSWER, UNABLE TO LEAVE VOICEMAIL.
--- NOTE | 2020-07-23 01:15 | NUR ---
PT REMAINS ON DIRECTOR QUALITY SYSTEMS. RASS SCORE -2. IV SITES REMAIN PATENT. VSS. CONTINOUS DRIPS RUNNING ORDERED. BED IS LOCKED AND IN LOWEST POSTION.
--- NOTE | 2020-07-23 01:23 | NUR ---
GAVE REPORT TO JULIO CESAR PARRY OVER TELEPHONE. ETA TO ICU BED 7 15 MIN. RT CALLED TO HELP WITH TRANSFER.
--- NOTE | 2020-07-23 01:45 | NUR ---
SEE IV SPREAD SHEET FOR VS.
--- NOTE | 2020-07-23 02:00 | NUR ---
APROX 2AM PT WAS TRANSPORTED FROM ED TO ICU 7. PT TOLERATED TRANSPORT WELL AMBU AT BEDSIDE AND VENT PLUGGED INTO RED OUTLET. PT BS WERE COARSE AND Sx W/ MOD AMT OF PINK/WHITE SECRETIONS.
--- NOTE | 2020-07-23 02:00 | NUR ---
Patient will be admitted to care of . Admited to ICU. Will go to room 7. Belongings list completed. Report to JULIO CESAR PARRY.
--- NOTE | 2020-07-23 02:05 | NUR ---
RECIEVED PT FROM ED RN, PT SEDATED RASS -2, LUNGS DIMINISHED BILATERAL, ETT TO VENT SZ 5 AT 22 TO TEETH, ACPC FIO2 100% PEEP 5 RATE 16, SR ON MONITOR, PERIPHERAL PULSES PALPABLE, ABD SOFT AND NON TENDER, SKIN DRY AND WARM TO TOUCH, SKIN INTACT, FC IN PLACE, URINE CLEAR AND YELLOW, PT HAS RFA AV SHUNT, LEFT WRIST 22 GAUGE RUNNING PROPOFOL 10MCG/KG/MIN, LEJ 20 GAUGE RUNNING NS 100MLS/HR, PT AFEBRILE AND SHOWING NO SIGNS OF ACUTE DISTRESS, SAFETY MEASURES IN PLACE, WILL CONTINUE WITH CURRENT POC AND MONITORING
[2020-07-23] MEDS ORDERED: PROPOFOL 1000 MG/100 ML PREMIX 100 ML IV PRN (03:20)
--- NOTE | 2020-07-23 03:20 | NUR ---
CONTACTED DR WILSON VIA TOR, ORDERED PROPOFOL DRI[, GLUCERNA TF, INSULIN SCALE
[2020-07-23] MEDS ORDERED: INSULIN LISPRO SLIDING SCALE 100 UNITS/ML VIAL SUBQ PRN (03:25)
--- NOTE | 2020-07-23 04:12 | NUR ---
FOR CONSULTATION TO SPA DIRECTOR/FINANCE; DR. KIM NOTIFED THRU TELEPHONE AND HE SAID HE'LL SEE THE PATIENT IN THE MORNING.
--- NOTE | 2020-07-23 05:45 | NUR ---
REPOSITIONED PT, PERFORMED AM CARE, STARTED TF GLUCERNA 30ML/HR FWF 20ML Q6H, ORAL CARE AND SUCTIONING PERFORMED, SAFEY MEASURES IN PLACE, WILL CONTINUE TO MONITOR
--- NOTE | 2020-07-23 06:27 | NUR ---
RT COLLECTED SPUTUM AT 0300 HOURS. PATIENT STABLE AND ALERT. SPUTUM TURNED TO THE LAB AND RN NOTIFIED.
--- NOTE | 2020-07-23 07:00 | NUR ---
PT BLOOD GLUCOSE 103
--- NOTE | 2020-07-23 07:10 | NUR ---
REC'D PT ON CARESCAPE VENT SETTINGS AC 16 VT 450 PEEP 5 FIO2 100% ALARMS ON AND AUDIBLE AND VENT IS PLUGGED INTO RED OUTLET, BVM AT HOB, SXN PT SMALL AMT OF WHITE SECRETIONS, B\S ARE DIMINISHED BILATERALLY, PT IS ORALLY INTUBATE WITH 7.0 ETT SECURED WITH ANCHOR FAST AT 22CM PT IS RESTING
[2020-07-23] MEDS ORDERED: METOCLOPRAMIDE 10 MG TAB PO PRN (07:15)
[2020-07-23] MEDS ORDERED: LORazepam 2 MG/ML VIAL IM/IVP PRN (07:15)
[2020-07-23] MEDS ORDERED: ACETAMINOPHEN 325 MG TAB PO PRN (07:15)
[2020-07-23] MEDS ORDERED: HEPARIN PER PHARMACY MC PRN ×2 (07:15)
[2020-07-23] MEDS ORDERED: ZOLPIDEM 5 MG TAB PO PRN (07:15)
[2020-07-23] MEDS ORDERED: hePARIN / DEXT 5% PREMIX 250 ML IV SCH (07:15)
[2020-07-23] MEDS ORDERED: DOCUSATE SODIUM 100 MG GELCAP PO PRN (07:15)
[2020-07-23] MEDS ORDERED: ONDANSETRON 4 MG/2 ML VIAL IM/IVP PRN (07:15)
--- NOTE | 2020-07-23 07:29 | NUR ---
ENDORSED TO DAY SHIFT RN FOR CONTINUITY OF CARE
--- NOTE | 2020-07-23 07:30 | NUR ---
RECEIVED BEDSIDE REPORT FROM HORSE SHOW MANAGER NURSES, EBONY. PT INTUBATED AND UNABLE TO MAKE NEEDS KNOWN, AC/VC FIO2 100%, RR 16, PEEP 5, HOB ELEVATED 30 DEGREES. BREATHING EVEN AND UNLABORED, JUDY UPPER LOBE RHONCHI ON AUSCULTATION. FLACC 0. RASS -2, DRY WEIGHT 72.5 KG. NO SIGNS OF ACUTE DISTRESS NOTED. REAL ESTATE UTILIZATION OFFICER IN PLACE. 22 G IV ON L WRIST. 20 G LEJ,NS RUNNING AT 100 ML/HR, PROPOFOL RUNNING 4.98 MCG/KG.MIN. RFA AV SHUNT IN PLACE, SIGN POSTED FOR NO BP PRESSURE OR PUNCTURE. OG TUBE TO FEED, GLUCERNA RUNNING AT 30 ML/HR. PATIENT ON JUDY ARM SOFT WRIST RESTRAINS, NO INJURY NOTED. OCASIO CATHETER IN PLACE DRAINING TO GRAVITY, CLEAR, YELLOW URINE NOTED. SKIN DRY AND WARM. ABDOMEN SOFT AND ROUND. JUDY SCDS ACTIVATED. BED IN LOW POSITION. SAFETY MEASURES IN PLACE. FALL RISK PROTOCOL AND ENHANCED DROPLET PROTOCOL IN PLACE.
[2020-07-23] MEDS ORDERED: DEXTROSE 50% 50 ML SYR IVP PRN (07:35)
--- NOTE | 2020-07-23 07:41 | NUR ---
RECEIVED VERBAL ORDER FOR LASIX IVP [address] WILSON, REPEATED AND CONFIRMED ORDER WITH DR WILSON, WILL ORDER ACCORDINGLY.
[2020-07-23] MEDS ORDERED: FUROSEMIDE 20 MG/2 ML VIAL IVP SCH (08:00)
[2020-07-23] MEDS: hePARIN / DEXT 5% PREMIX 250 ML IV SCH ×2 (08:01→09:47)
--- NOTE | 2020-07-23 08:02 | NUR ---
STARTED HEPARIN DRIP PER PHARMACY PROTOCOL FOR HIGH TROPONIN LEVEL PER DR WILSON ORDER.
--- NOTE | 2020-07-23 08:08 | NUR ---
BP 154/88 PULSE 95, ADMINISTERED LASIX VIA IVP PER MD ORDER.
--- NOTE | 2020-07-23 08:11 | NUR ---
DISCHARGE PLANNING: THIS IS A 59 Y/O FEMALE PATIENT FROM HOME, WHO WAS BIBA DUE TO LETHARGY. PAST MEDICAL HISTORY INCLUDE ESRD, HTN, ANEMIA OF CHRONIC DISEASE, DM, DM NEUROPATHY, DM GASTROPARESIS, CABG. INITIAL DIAGNOSIS OF RESPIRATORY FAILURE, SEPSIS, ALTERED MENTAL STATUS. CURRENT LABS INCLUDE WBC 21.1, H/H 10.8/34.3, NA/K 143/4.5, BUN/CREA 42/10.8. COVID RAPID TEST NEGATIVE, COVID PCR PENDING. ON ZOSYN. CURRENT CXR SHOWED NO SIGNIFICANT CHANGE IN THE RIGHT PERIHILAR INFILTRATES. HEAD CT SHOWED NEGATIVE FOR ACUTE INTRACRANIAL PROCESS. ID, PULMO, CARDIO AND NEPHRO CONSULTS IN PLACE. ORALLY INTUBATED TO VENT, FIO2 100%,PEEP 5 AND O2 SAT 100%. ON HEPARIN DRIP. SEDATED WITH PROPOFOL. DC PLAN PENDING ON PATIENT'S RESPONSE TO TREATMENT. Addendum: 07/23/20 at 1054 by Yenni Nix RECEIVED AN ORDER FOR HIGHER LEVEL OF CARE. INQUIRY SENT TO [facility] AND [facility]. CONTACTED PATIENT CHRISTAL AGUIRRE AT [phone] WITH CORPORATE SALES TRAINER YARELI #[id number] TO DISCUSS OC TRANSFER AND IS IN AGREEMENT. HE STATED NOT [facility] OR [facility], PATIENT HAD HER OPEN HEART SURGERY AT [facility] AND THE FIELD INSTALLATION TECHNICIAN IS DR. JESSE SCHERER. INFORMED HIM THAT I WILL REACH OUT TO [facility] AND WILL UPDATE HIM. CONTACTED [facility] AT [phone], ABLE TO SPEAK TO [facility]. [facility] THEY DO NOT DO HEART SURGERY IN THEIR FACILITY, MAYBE [facility]. CONTACTED PATIENT'S AGAIN TO CLARIFY, HE STATED [facility] OR [facility] HE IS NOT SURE. CONTACTED [facility] AT [phone], ABLE TO SPEAK TO [facility] CONTROL. SHE STATED SHE HAVE TO TRANSFER ME TO THEIR ULTRASOUND MANAGER. NO ANSWER, LEFT MESSAGE. Addendum: 07/23/20 at 1107 by Yenni Nix CM CONTACTED [facility] TRANSFER [facility]ENTER, ABLE TO SPEAK TO ELAINA. PER ELAINA, THEY DO NOT HAVE ANY ICU BEDS AT THIS TIME. Addendum: 07/23/20 at 1115 by Yenni Nix CM CONTACTED [facility] AGAIN, NO ANSWER. LEFT MESSAGE. WILL FOLLOW UP. Addendum: 07/23/20 at 1118 by Yenni Nix CM CHARGE NURSE KATHLEEN DOZIER. Addendum: 07/23/20 at 1230 by Yenni Nix CM RECEIVED A CALL BACK FROM DIGNA OBANDOULTRASOUND MANAGER AT [facility], TO GATHER MORE INFORMATION REGARDING THIS PATIENT. SHE STATED THAT SHE NEED TO TRANSFER ME TO ADMITTING, FOR FINANCIAL PART OF THE TRANSFER. PER ADMITTING, THEIR PROCESS IS FOR US TO HAVE AN ACCEPTING PHYSICIAN AND A FIELD INSTALLATION TECHNICIAN FIRST, THEY DO NOT REACH OUT TO THE PHYSICIAN. I ASKED HER OF THEIR LIST OF PHYSICIANS AND CARDIOLOGISTS. SHE STATED SHE CANNOT RELEASE THAT INFORMATION. SHE RECOMMENDED TO CALL THE FAMILY OR THE PATIENT TO GET THE INFORMATION REGARDING CARDIO AND PCP. SHE STATED ONCE WE HAVE AN ACCEPTING DOC AND FIELD INSTALLATION TECHNICIAN TO PUT IT ON THE COVER SHEET AND FAX IT OVER TO [phone]. CONTACTED PATIENT'S [facility] AGAIN, WITH CORPORATE SALES TRAINER PRASANTH [id number]. HE PROVIDED ME WITH PCP DR. JOANNE ASTORGA [phone] AND FIELD INSTALLATION TECHNICIAN GEORGES PARADA AT [phone]. DR. WILSON MADE AWARE. DR. WILSON CONTACTED DR. ASTORGA'S OFFICE, INFORMED THEM THAT PATIENT IS ADMITTED IN THE HOSPITAL AND NEEDS TO BE TRANSFERRED TO [facility] FOR PCI CATH AND TROPS 64. PER THE PERSON THAT DR. WILSON, SPOKE WITH WILL RELAY THE MESSAGE. WILL FOLLOW UP. Addendum: 07/23/20 at 1338 by Olga Lewis CM DC PLANNING: RECEIVED A CALL FROM DR WILSON SPOKE WITH DR ASTORGA AT [facility] AND DR ASTORGA ACCEPTED PATIENT. FAXED ALL PAPERWORK TO ULTRASOUND MANAGER [phone]. CM TO FOLLOW Addendum: 07/23/20 at 1456 by Olga Lewis CM DC PLANNING: CALLED [facility] SPOKE WITH ULTRASOUND MANAGER DIGNA NOTIFIED HER DR ASTORGA IS ACCEPTING PATIENT. SHE TRANSFERRED ME TO ADMITTING AND SPOKE WITH HEMAL MELO. PER HEMAL WE HAVE TO HAVE THE SPECIALIST FIELD INSTALLATION TECHNICIAN SCHEDULE THE PROCEDURE AND ONCE HE SCHEDULE IT THEY CAN ACCEPT FOR THE PATIENT HER REASON WAS IF THE SPECIALIST DOESN'T SCHEDULE THE PROCEDURE MEDICARE WONT PAY FOR IT. NOTIFIED DR WILSON. CALLED FIELD INSTALLATION TECHNICIAN OFFICE DR PATSY PARADA [phone] AND LEFT A MESSAGE CM TO FOLLOW Addendum: 07/23/20 at 1609 by Olga Lewis CM DC PLANNING PER DR KATIE PARADA [phone] IS ACCEPTING PATIENT AT [facility] . CALLED SPOKE WITH HEMAL MELO STILL DR SU NEEDS TO SCHEDULE A PROCEDURE IN OR AND ONCE ITS SCHEDULE WITH OR THEY CAN ACCEPT PATIENT. CALLED DR SU'S OFFICE LEFT A MESSAGE . CM TO FOLLOW Addendum: 07/24/20 at 1135 by Yenni Nix CM CONTACTED DR. PARADA'S OFFICE AT [phone] TO FOLLOW UP IF THE DOC ABLE TO ARRANGE SCHEDULE WITH OR, ABLE TO SPEAK TO RENA. PER RENA, SHE WILL REACH OUT TO THE DOC AND WILL CALL ME BACK. PROVIDED HER OF MY CONTACT INFO. Addendum: 07/24/20 at 1209 by Yenni Nix CM RECEIVED A CALL BACK FROM DR. ORELLANA, STATING THAT SHE IS ABLE TO ACCEPT THE PATIENT HOWEVER SHE WILL NOT SCHEDULE HER FOR CATH YET UNTIL SHE EVALUATES THE PATIENT. INFORMED HER THAT I WILL LET AWARE. CONTACTED [facility], ABLE TO SPEAK TO GERBER. INFORMED GERBER OF WHATEVER DR. ORELLANA SAID TO ME. SHE STATED THAT SHE WILL REACH OUT TO [facility] AND WILL CALL ME BACK. Addendum: 07/24/20 at 1347 by Yenni Nix CM RECEIVED A CALL BACK FROM YAMILA OF [facility]. INFORMED HER THAT DR. ASTORGA IS ABLE TO ACCEPT THE PATIENT. SHE STATED THAT THAT IS NOT TRUE. INFORMED HER THAT DR. WILSON, SPOKE TO HIM AND TOLD HER THAT HE IS ABLE TO ACCEPT THE PATIENT. PER YAMILA, DR. ASTORGA IS NOT AVAILABLE AT THIS TIME. I ALSO MENTIONED TO HER THAT I SPOKE TO DR. ORELLANA AND IS ABLE TO ACCEPT THE PATIENT. PER YAMILA THEY ARE NOT ABLE TO ACCEPT THE PATIENT LATERAL TRANSFER/CARDIO EVALUATION, THERE NEED TO BE A PROCEDURE TO BE DONE OR ELSE MEDICARE WILL NOT PAY THEM. YAMILA ALSO MENTIONED, THEY CAN ACCEPT LATERAL TRANSFER, IF FAMILY IS ABLE TO PAY $3200 UP FRONT. INFORMED HER THAT I WILL REACH OUT TO THE FAMILY. CONTACTED PATIENT'S [facility] WITH THE HELP OF CUPOLA HOIST OPERATOR FANNY #[id number] TO DISCUSS OTHER OPTIONS (A LENGTHY CONVERSATION). HE STATED HE DOES NOT HAVE THAT MUCH MONEY TO PAY. HE ALSO STATED THAT HE PREFERRED THE PATIENT TO GO TO [facility] DUE TO ALL THE PATIENT'S RECORDS AND DOCTORS ARE THERE. HOWEVER, IF THEY ARE NOT ABLE TO ACCEPT THE PATIENT, IT IS OK WITH HIM TO SEND THE PATIENT TO OTHER HOSPITALS LIKE [facility], [facility], [facility] AND [facility]. I ALSO DISCUSSED WITH HIM THAT WE RECEIVED A VOICEMAIL FROM KAUSHAL CLAIMING THAT SHE IS THE DAUGHTER AND HE CONFIRMED. HE CLAIMED THAT HE TOOK THE PATIENT TO [facility] PRIOR TO HOSPITALIZATION AND WHEN THE PATIENT CAME BACK THE PATIENT WAS SICK AND WEAK. HE CLAIMED THAT PROBABLY DID NOT TAKE GOOD CARE OF HER. HE ALSO MENTIONED, THAT THE PATIENT AND HIM HAVE BEEN LIVING TOGETHER FOR 20 YEARS, FOR ELEVEN YEARS. HE STATED HE CAN SEND ME A COPY OF THEIR MARRIAGE LICENSE. HE STATED HE DOES NOT WANT US TO RELEASE ANY INFORMATION TO PATIENT'S DAUGHTERS SANIA AND KAUSHAL. ICU CHARGE NURSE KATHLEEN MADE AWARE. REFERRAL SENT TO [facility] AND [facility]. WILL FOLLOW UP. Addendum: 07/24/20 at 1542 by Yenni Nix CM CONTACTED [facility] TO FOLLOW UP ON THE REFERRAL, ABLE TO SPEAK TO YASSINE. THEY NEED FIELD INSTALLATION TECHNICIAN PHONE NUMBER, DR. MURPHY'S NUMBER PROVIDED TO HER. I ALSO INFORMED HER THAT AFTER HOURS TO CALL ULTRASOUND MANAGER. CONTACTED [facility] TRANSFER [facility] AT [phone], NO ANSWER. LEFT MESSAGE. CONTACTED [facility] AT [phone] TO FOLLOW UP ON THE REFERRAL, ABLE TO SPEAK TO STARR. PER STARR THEY RECEIVED THE PACKET AND WILL REVIEW AND WILL CALL US BACK. INFORMED HER THAT FOR AFTER HOURS TO CALL ULTRASOUND MANAGER AT [phone]. I ALSO PROVIDED HER OF DR. MURPHY AND DR. FOX'S PHONE NUMBER. CONTACTED [facility] AT [phone]. NO ANSWER. LEFT MESSAGE. Addendum: 07/24/20 at 1625 by Yenni Nix CM RECEIVED A CALL FROM SHON OF [facility], STATING THAT THEY ARE AT CAPACITY AT THIS TIME AND NO BEDS AVAILABLE AT THIS TIME. RECEIVED A CALL FROM [facility], TO GATHER MORE INFORMATION REGARDING THIS PATIENT. PROVIDED ALL INFORMATION NEEDED. Addendum: 07/25/20 at 0925 by Yenni Nix CM CONTACTED PATIENT'S CHRISTAL AGUIRRE TO CONFIRM THAT HE IS AWARE THAT PATIENT GOT TRANSFERRED TO [facility]. HE STATED THAT HE WAS INFORMED BY THE NURSE LAST NIGHT. HE ALSO STATED THAT HE WILL BE FILLING A COMPLAINT, THAT HE IS NOT HAPPY WITH OUR SERVICES, THAT WE WERE TELLING HIM DIFFERENT STORIES. I APOLOGIZED THAT HE FELT THAT WAY. PROVIDED HIM WITH THE ULTRASOUND MANAGER'S PHONE NUMBER. ULTRASOUND MANAGER MADE AWARE.
[2020-07-23] MEDS: CALCIUM ACETATE 667 MG TAB PO SCH ×3 (09:22→18:19)
[2020-07-23] MEDS: VITAMIN B COMPLEX W/C 1 TAB PO SCH (09:23)
[2020-07-23] MEDS: FOLIC ACID 1 MG TAB PO SCH (09:23)
[2020-07-23] MEDS: carvediloL 12.5 MG TAB PO SCH ×2 (09:24→20:37)
[2020-07-23] MEDS: GABAPENTIN 300 MG CAP PO SCH (09:24)
[2020-07-23] MEDS: glipiZIDE 5 MG TAB PO SCH (09:24)
[2020-07-23] MEDS: ASPIRIN 81 MG TAB.CHEW PO SCH (09:25)
--- NOTE | 2020-07-23 09:25 | NUR ---
PATIENT HAS BEEN SCREENED AND CATEGORIZED HIGH NUTRITION RISK. PATIENT WILL BE SEEN WITHIN 1-2 DAYS OF ADMISSION. 07/23/[address]
[2020-07-23] MEDS: amLODIPine 5 MG TAB PO SCH (09:35)
--- NOTE | 2020-07-23 09:35 | NUR ---
ADMINISTERED AM MEDS PER MD ORDER VIA OGT, BP 150/75, PULSE 93, SPO2 100% ON FIO2 80%. OG TUBE RESIDUAL 0 ML, FLUSHED BEFORE AND AFTER MEDS. HYGIENE CARE PROVIDED, VAP ORAL CARE, SUCTIONING, OCASIO CARE PERFORMED. REPOSITIONED PATIENT AND OFFLOADED PRESSURE WITH PILLOWS, SCD ON BILATERALLY. SAFETY MEASURES IN PLACE. HOB 30 DEGREES. BED IN LOW POSITION, FALL RISK PROTOCOL IN PLACE.
--- NOTE | 2020-07-23 09:45 | NUR ---
DR HARRIS IS ROUNDING ON PATIENT AT BEDSIDE.
--- NOTE | 2020-07-23 09:50 | NUR ---
DR CHAMORRO IS ROUNDING ON PATIENT AT BEDSIDE.
--- NOTE | 2020-07-23 10:38 | NUR ---
SOCIAL WORK NOTE: Patient's Orientation Unable To Assess Information Provided By CHRISTAL AGUIRRE - Comments SW WAS UNABLE TO MEET PATIENT AT BEDSIDE DUE TO MEDICAL CONDITION. SW COMPLETED ASSESSMENT WITH PATIENT'S , CHRISTAL AGUIRRE. Associate Media Director, Realtionship and Phone Number CHRISTAL SUAREZ [phone] Healthcare Power of Toolmaker Helper No Does Patient Have a POLST No Identifying Problems No Social Work Triggers Is A Social Work Consult Needed No Mandate Report Filed No Explanation Of Identifying Problems PATIENT IS A 59-YEAR-OLD FEMALE ADMITTED FOR RESPIRATORY FAILURE. PATIENT HAS PMHX ESRD, HTN, PAD, AND DM. REPORTED NO SUBSTANCE ABUSE OR MENTAL HEALTH. Admitted From Home Pre-Admission Level Of Functioning Status Assist With ADL Level Of Functioning Comment REPORTED THAT PATIENT NEEDS ASSISTANCE WITH COOKING, BATHING, AND DOCTOR APPOINTMENTS. Prior Resources/Services Used In Last 12 Months IHSS Prior Resources/Service Comments STATED THAT PATIENT RECEIVES 80 HOURS OF IHSS. Prior DME Walker Wheelchair Dialysis Hemodialysis Name And Phone Number of Dialysis Facility [facility] ESRD Outpatient Days ESRD Outpatient Time 1430 Living Situation Lives With Family House Patient Had Caregiver Yes Name and Contact Number Of Designated Caregiver CHRISTAL AGUIRRE - [phone] Home Support No Caregiver Issues Financial Issues No Known Financial Issue Referral To The Financial Counselor Needed No Factors/Needs No D/C Needs Identified Explanation And Or Other Factors Affecting/Possible DC Needs PATIENT'S STATED HE WOULD COORDINATE TRANSPORTATION FOR PATIENT AT DISCHARGE. Pt/Rep Participated In Discharge Plan Yes Patient/Family Agress With Discharge Plan Yes Discharge Plan Comments TENTATIVE DISCHARGE PLAN IS FOR PATIENT TO RETURN HOME. DC Plan Status Initiated
[2020-07-23 10:42] LABS: BASOPHILS # (AUTO) 0.1 K/uL (0.00-0.22); BASOPHILS % (AUTO) 0.4 % (0.0-2.0); HEMATOCRIT 32.4 % (36-48); HEMOGLOBIN 10.3 g/dL (12.0-16.0); LYMPHOCYTES # (AUTO) 2.3 K/uL (2.5-16.5); LYMPHOCYTES % (AUTO) 13.7 % (20.5-51.1); MEAN CORPUSCULAR HEMOGLOBIN 28 pg (27-31); MEAN CORPUSCULAR HGB CONC 32 g/dL (33-37); MEAN CORPUSCULAR VOLUME 88.6 fL (80-94); MONOCYTES # (AUTO) 0.7 K/uL (0.8-1.0); MONOCYTES % (AUTO) 4.5 % (1.7-9.3); NEUTROPHILS # (AUTO) 13.5 K/uL (1.8-7.7); NEUTROPHILS % (AUTO) 81.4 % (42.2-75.2); PLATELET COUNT (AUTO) 250 K/uL (140-450); RED BLOOD CELL COUNT(AUTO) 3.65 MIL/uL (4.20-5.40); RED CELL DISTRIBUTION WIDTH 15.4 % (11.6-13.7); WHITE BLOOD COUNT (AUTO) 16.5 K/uL (4.8-10.8)
[2020-07-23 10:54] LABS: PROTHROMBIN TIME 10.7 secs (10.8-13.4)
--- NOTE | 2020-07-23 10:55 | NUR ---
OBTAINED TELEPHONE CONSENT FROM PATIENT'S CHRISTAL AGUIRRE FOR HEMODIALYSIS. CHRISTAL WAS AWARE AND ACKNOWLEDGE THAT PATIENT WILL BE GETTING DIALYSIS TODAY.
[2020-07-23 10:59] LABS: ANION GAP 20.5 (8-16); CARBON DIOXIDE 25.8 mmol/L (21-32); POTASSIUM 4.3 mmol/L (3.5-5.1)
[2020-07-23 11:03] LABS: THYROID STIMULATING HORMONE 0.69 uIU/mL (0.34-3.74)
[2020-07-23 11:09] LABS: CREATININE 11.3 mg/dL (0.6-1.3)
[2020-07-23 11:12] LABS: MAGNESIUM 2.7 mg/dL (1.8-2.4)
[2020-07-23 11:14] LABS: PHOSPHORUS 9.9 mg/dL (2.5-4.9)
--- NOTE | 2020-07-23 11:22 | NUR ---
RECEIVED CRITICAL LAB FOR CR 11.3 AND CALCIUM 9.9H, PATIENT IS ON HEMODIALYSIS AT THIS TIME.
[2020-07-23] MEDS ORDERED: BLOOD GLUCOSE MONITORING 1 DEV DEV FS SCH (11:30)
--- NOTE | 2020-07-23 12:29 | NUR ---
PAGED DR WILSON FOR CRITICAL LAB TROPONIN [phone] WILSON WAS AWARE.
[2020-07-23] MEDS: BLOOD GLUCOSE MONITORING 1 DEV DEV FS SCH ×2 (12:37→18:29)
--- NOTE | 2020-07-23 12:41 | NUR ---
BLOOD GLUCOSE CHECKED, 175, 2 UNIT HUMALOG PROVIDED. HOB 35 DEGREE, BED IN LOW POSITION. SAFETY PRECAUTIONS IN PLACE. HOSIERY KNITTER IN PLACE
[2020-07-23] MEDS: PIPERACILLIN/TAZOBACTAM 2.25 GM in DEXTROSE 5% 50 ML IV SCH ×2 (13:43→21:05)
--- NOTE | 2020-07-23 13:47 | NUR ---
PATIENT ON DYALIS. SCHEDULED ANTIBIOTIC ADMINISTERED PER MD ORDER. PATIENT IN BED, BREATHING EVEN AND UNLABORED. FLACC 0. NO SIGNS OF ACUTE DISTRESS NOTED. HOB 35 DEGREES AND LOW IN BED POSITION. SAFETY PRECAUTIONS IN PLACE. RESIDENT ASSISTANT IN PLACE.
--- NOTE | 2020-07-23 14:57 | NUR ---
PICC LINE RN IS AT BEDSIDE AND ABOUT TO INSERT A PICC LINE.
--- NOTE | 2020-07-23 15:43 | NUR ---
DR MURPHY IS ASSESSING PATIENT AT BEDSIDE.
--- NOTE | 2020-07-23 16:17 | NUR ---
PICC LINE INSERTED, AWAITING FOR X-RAY TO CONFIRM.
--- NOTE | 2020-07-23 16:47 | NUR ---
07/23/2020 RD INITIAL ASSESSMENT COMPLETED PLEASE REFER TO NUTRITION ASSESSMENT UNDER CARE ACTIVITY FOR ESTIMATED NUTRITIONAL NEEDS. RECOMMEND CHANGING TF FORMULA TO NEPRO @ 35 ML/HR X 24 HRS/DAY WITH CURRENT PROPOFOL @ 2.15 ML/HR GIVING 57 ADDITIONAL KCALS/DAY, PT WILL RECEIVE 1512 KCALS AND 68 GM PRO PER DAY TO MEET 100% ESTIMATED KCAL AND 99% ESTIMATED PRO NEEDS PER DAY RD TO FOLLOW-UP IN 2-3 DAYS PATIENT IS HIGH RISK. JUAN KHAN, RD
--- NOTE | 2020-07-23 17:03 | NUR ---
PICC CONFIRMED IN SATISFACTORY POSITION TO USE, SWITCH HEPARIN DRIP AND PROPOFOL TO PICC. LEJ LEAKING, REMOVED IV, CANNULA INTACT, NO BLEEDING. PROVIDED HYGIENE CARE, ORAL CARE, CHANGED ALL DIRTY, REPOSITIONED PATIENT, OFFLOADED PRESSURE WITH PILLOWS, APPLIED SCD BILATERALLY. RELEASED SOFT WRIST RESTRAINTS AND PERFORMED RANGE OF MOTIONS, NO SIGN OF INJURY. SAFETY MEASURES IN PLACE. FORMULA WEIGHER IN PLACE.
--- NOTE | 2020-07-23 17:30 | NUR ---
Called [facility] and left a message for the mill house supervisor to follow up on the transfer. Called Dr. Licha Persaud cleaning associate and spoke to her, she needs to see the patient first to see if a candidate for angiogram. Dr. Hurt asked the cleaning associate to call her. Will call Dr Trevizo and have him call Dr. Hurt. The mill house supervisor Lee Ann at [facility] called and stated that she will not give bed unless Dr. Hurt schedule the patient at the microbiology lab technician.
--- NOTE | 2020-07-23 17:30 | NUR ---
ANA LAURA THE [place] [employer] CALLED GAVE PATSY MORGAN NUMBER [phone] KATHERINE Mcdaniel TO CALL HER. TEXT THE NUMBER TO KATHERINE MORGAN, HE CALLED HE SAID IT THE VOICE MAIL. THE [facility] NOTIFIED.
--- NOTE | 2020-07-23 18:00 | NUR ---
CHANGED OGT FEEDING TO NEPRO PER ORDER, RUNNING 35 ML/HR AND 20 ML/Q4H WATER FLUSH, CHANGED ALL TUBINGS.
[2020-07-23 18:02] LABS: ANION GAP 14.7 (8-16); CARBON DIOXIDE 30.2 mmol/L (21-32); POTASSIUM 3.9 mmol/L (3.5-5.1)
[2020-07-23 18:04] LABS: CREATININE 6.2 mg/dL (0.6-1.3)
[2020-07-23] MEDS ORDERED: VASOPRESSIN 20 UNITS in NACL 0.9% 250 ML IV SCH (18:10)
--- NOTE | 2020-07-23 18:12 | NUR ---
BP LOW 63/41 PULSE 81, REPORTED TO DR WILSON. RECEIVED TORB ORDER FOR MIDODRINE TID AND START A DOSE NOW. PER DR WILSON, START MIDODRINE FIRST, IF NOT EFFECTIVE, THEN START PATIENT ON VASOPRESSIN DRIP. REPEATED AND CONFIRMED ORDER WITH DR WILSON, AND WILL INPUT ORDER ACCORDINGLY.
[2020-07-23] MEDS: MIDODRINE 5 MG TAB PO SCH ×2 (18:20→19:00)
--- NOTE | 2020-07-23 18:20 | NUR ---
RECEIVED CRITICAL LABS FOR CR 6.2 AND PTT 54.3, CR TREND DOWN. PTT WITHIN THERAPEUTIC RANGE, NO ADJUSTMENT. WILL ORDER THE NEXT PTT DRAW.
[2020-07-23] MEDS: INSULIN LISPRO SLIDING SCALE 100 UNITS/ML VIAL SUBQ PRN (18:30)
--- NOTE | 2020-07-23 18:30 | NUR ---
CHECKED BLOOD GLUCOSE AND RECEIVED 185, ADMINISTERED 2 UNIT HUMALOG. ADMINISTERED MIDODRINE AND SCHEDULE MED VIA OGT, FLUSH BEFORE AND AFTER MEDS. WILL MONITOR BP.
--- NOTE | 2020-07-23 18:35 | NUR ---
Spoke to the office of Dr. Hurt and was given DR Coto cell number. Dr. Hurt to notify Dr. Coto. will endorse to supervisor blood.
--- NOTE | 2020-07-23 18:37 | NUR ---
BP CURRENTLY 46/16 PULSE 84, BP CONTINUOUSLY TRENDING DOWN, START VASOPRESSIN PER DR WILSON ORDERED GIVEN.
--- NOTE | 2020-07-23 19:14 | NUR ---
RECEIVED REPORT FROM AM SHIFT. PT SEEN AND ASSESSED. PT IS INTUBATED WITH ETT SIZE 7.0 AND SECURED WITH ANCHOR-FAST @ 22cm. PT IS ON VENT SETTINGS: AC/VC RR 16bpm, Vt 450cc, PEEP 5 cmH20, FiO2 80% WITH SPO2 OF 100%. TITRATED FiO2 TO 60% WITH SPO2 OF 98%. VENT PLUGGED IN RED OUTLET. VENT ALARMS SET AND AUDIBLE TO ENVIRONMENT. AUSCULTATION REVEALS BILATERAL CLEAR BREATH SOUNDS. PT IS IN NO APPARENT RESPIRATORY DISTRESS AT THIS TIME. WILL CONTINUE TO MONITOR PT.
--- NOTE | 2020-07-23 19:45 | NUR ---
PT LAYING IN BED, OPENS EYES RASS-2, DOES NOT FOLLOW COMMANDS @ THIS TIME. 4+ MM REACTIVE PERRL. SR 80S ON MONITOR, TRACE EDEMA NOTED. ETT TO VENT @ 80% FIO2, 100% SPO2, DIMINISHED BREATH SOUNDS. ABD SOFT NON DISTENDED, OGT IN PLACE, WITH FEEDINGS RUNNING. OCASIO CATH IN PLACE, SKIN INTACT, PICC LINE TO L UPPER ARM. VASOPRESSIN AND PROPOFOL DRIP RUNNING. DRY WEIGHT 72.5 KG
--- NOTE | 2020-07-23 20:05 | NUR ---
PAGED DR MURPHY FOR HYPOTENSION SBP 70-80S, STATED TO PAGE CARRIAGE FEEDER; RECOMMENDING LEVOPHED BUT TO CLARIFY WITH CARRIAGE FEEDER. TROPONIN LEVEL ADDED TO AM LABS. WILL CARRY OUT ORDER; WILL CONTINUE TO OBSERVE.
--- NOTE | 2020-07-23 20:15 | NUR ---
SPOKE WITH DR KIM; NEW ORDERS FOR LEVOPHED GIVEN TITRATE TO KEEP SBP >90, MAP>65. WILL CONTINUE TO OBSERVE.
[2020-07-23] MEDS ORDERED: NOREPINEPHRINE 16 MG in DEXTROSE 5% 250 ML IV PRN (20:20)
--- NOTE | 2020-07-23 21:00 | NUR ---
PROPOFOL HELD @ THIS TIME PT BP LOW AND PT RASS -3 WILL CONTINUE TO OBSERVE.
[2020-07-23] MEDS: ATORVASTATIN 20 MG TAB PO SCH (21:05)
--- NOTE | 2020-07-23 21:30 | NUR ---
TITRATED FiO2 FROM 60% TO 50% WITH SPO2 OF OF 100%. PT IS IN NO APPARENT RESPIRATORY DISTRESS AT THIS TIME. RN NOTIFIED. WILL CONTINUE TO MONITOR PT.
--- NOTE | 2020-07-23 21:30 | NUR ---
PT NOT FOLLOWING COMMANDS; SPONTANEOUSLY OPENS EYES; SEDATION OFF @ THIS TIME WILL CONTINUE TO OBSERVE.
--- NOTE | 2020-07-23 21:30 | NUR ---
DR FOX PAGED ABOUT VARIABLE BP. LOW BPS ON LOWER EXTREMITIES IN 50-60S SBP. WHEN CHECK ON L FOREARM BP 160S. STATED TO START CVP ON PICC LINE.
--- NOTE | 2020-07-23 21:35 | NUR ---
DR KIM CALLED FOR UPDATE; INFORMED MD THAT BP ON L FA IS 160S, ALSO STATED L ARM HAS PICC. STATED OK TO CHECK BPS ON L FOREARM. STATED MAY START CENTRAL LINE ARTERIAL LINE TOMORROW WILL CONTINUE TO OBSERVE.
--- NOTE | 2020-07-23 22:30 | NUR ---
TITRATED OFF VASOPRESSIN; BP CHECKED ON L FA OK PER DR KIM. BP NOW 160S. WILL CONTINUE TO OBSERVE.
[2020-07-23 22:46] LABS: BARBITURATE, URINE NEGATIVE ng/ml (NEG <=200); BENZODIAZEPINE, URINE NEGATIVE ng/mL (NEG <=200); CANNABINOID, URINE NEGATIVE ng/mL (NEG <=50); COCAINE, URINE NEGATIVE ng/mL (NEG <=300); OPIATE, URINE POSITIVE ng/mL (NEG <=2000); PHENCYCLIDINE SCREEN,URINE NEGATIVE ng/mL (NEG <=25)
--- NOTE | 2020-07-23 23:41 | NUR ---
TITRATED FiO2 FROM 50% TO 40% WITH SPO2 OF OF 100%. PT IS IN NO APPARENT RESPIRATORY DISTRESS AT THIS TIME. RN NOTIFIED. WILL CONTINUE TO MONITOR PT.
[2020-07-24] VITALS (21 sets, daily range): BP systolic 113–163; BP diastolic 49–77
[2020-07-24] MEDS: BLOOD GLUCOSE MONITORING 1 DEV DEV FS SCH ×4 (00:22→17:50)
[2020-07-24] MEDS: INSULIN LISPRO SLIDING SCALE 100 UNITS/ML VIAL SUBQ PRN ×3 (00:30→17:51)
--- NOTE | 2020-07-24 00:45 | NUR ---
PT HAS EYES CLOSED; RR 16 SPO2 100%, PT TURNED AND REPOSITIONED. NO S/S OF DISTRESS NOTED. WILL CONTINUE TO OBSERVE
--- NOTE | 2020-07-24 01:46 | NUR ---
TITRATED FiO2 FROM 40% TO 30% WITH SPO2 OF OF 100%. PT IS IN NO APPARENT RESPIRATORY DISTRESS AT THIS TIME. RN NOTIFIED. WILL CONTINUE TO MONITOR PT.
--- NOTE | 2020-07-24 04:15 | NUR ---
AM LABS DRAWN; PTT DRAWN. INCREASED HEPARIN DRIP TO 950 UNITS/HR AND BOLUS GIVEN PER PROTOCOL
[2020-07-24] MEDS: PIPERACILLIN/TAZOBACTAM 2.25 GM in DEXTROSE 5% 50 ML IV SCH ×3 (05:01→21:00)
--- NOTE | 2020-07-24 05:29 | NUR ---
TITRATED FiO2 TO 25% WITH SPO2 OF 100%. PT IS IN NO APPARENT RESPIRATORY DISTRESS AT THIS TIME. AIRWAY IS PATENT ANF ETT IS SECURED WITH ANCHOR-FAST AT 22cm. PT IS STILL ON VENT SUPPORT. ASSESS FOR SBT IN THE MORNING.
--- NOTE | 2020-07-24 06:00 | NUR ---
PT TURNED AND REPOSITIONED; FLACC 0 NO S/S OF DISTRESS NOTED WILL CONTINUE TO OBSERVE.
[2020-07-24 06:08] LABS: BASOPHILS # (AUTO) 0.1 K/uL (0.00-0.22); BASOPHILS % (AUTO) 0.5 % (0.0-2.0); EOSINOPHILS % (AUTO) 0.3 % (0.0-4.0); HEMATOCRIT 31.4 % (36-48); HEMOGLOBIN 9.9 g/dL (12.0-16.0); LYMPHOCYTES # (AUTO) 3.5 K/uL (2.5-16.5); LYMPHOCYTES % (AUTO) 23.3 % (20.5-51.1); MEAN CORPUSCULAR HEMOGLOBIN 28 pg (27-31); MEAN CORPUSCULAR HGB CONC 32 g/dL (33-37); MEAN CORPUSCULAR VOLUME 89.4 fL (80-94); MONOCYTES # (AUTO) 0.9 K/uL (0.8-1.0); MONOCYTES % (AUTO) 6.3 % (1.7-9.3); NEUTROPHILS # (AUTO) 10.4 K/uL (1.8-7.7); NEUTROPHILS % (AUTO) 69.6 % (42.2-75.2); PLATELET COUNT (AUTO) 211 K/uL (140-450); RED BLOOD CELL COUNT(AUTO) 3.51 MIL/uL (4.20-5.40); RED CELL DISTRIBUTION WIDTH 15.4 % (11.6-13.7); WHITE BLOOD COUNT (AUTO) 14.9 K/uL (4.8-10.8)
[2020-07-24 06:23] LABS: ANION GAP 17.6 (8-16); CARBON DIOXIDE 28.6 mmol/L (21-32); POTASSIUM 4.2 mmol/L (3.5-5.1)
[2020-07-24 06:27] LABS: MAGNESIUM 2.1 mg/dL (1.8-2.4); PHOSPHORUS 6.4 mg/dL (2.5-4.9)
[2020-07-24] MEDS: MIDODRINE 5 MG TAB PO SCH ×2 (06:27→09:22)
--- NOTE | 2020-07-24 06:32 | NUR ---
FOLLOWED UP AGAIN TO BLOOD BANK THE AVAILABILITY OF PATIENT'S CONVALESCENT PLASMA BUT PER [facility] C[facility], IT DIDN'T COME YET; INSTRUCTED HER TO CALL ICU ONCE IT'S ALREADY AVAILABLE.
--- NOTE | 2020-07-24 07:13 | NUR ---
ENDORSED TO DAY SHIFT FOR CONTINUITY OF CARE.
--- NOTE | 2020-07-24 07:14 | NUR ---
RECEIVED BEDSIDE REPORT FROM MARKET RESEARCH SENIOR PROJECT MANAGER NURSES, MICHAEL. PT INTUBATED AND UNABLE TO MAKE NEEDS KNOWN, EYES OPEN TO SHAKING, PUPIL 4 MM SLUGGISH, ETT TO VENT: AC/VC FIO2 25%, RR 16, PEEP 5, SPO2 100%, HOB ELEVATED 30 DEGREES. RASS -2, DRY WEIGHT 72.5 KG. JUDY LUNG SOUNDS DIMINISHED ON AUSCULTATION, NO SINGS OF ACUTE DISTRESS, BREATHING EVEN AND UNLABORED. FLACC 0. CAUSTIC LIQUOR MAKER IN PLACE. LFA PICC LINE: NS RUNNING AT 10 ML/HR, HEPARIN DRIP AT 950 UNIT/HR. 22 G IV ON L WRIST CLEAN AND INTACT, SALINE LOCK. RFA AV SHUNT IN PLACE, SIGN POSTED FOR NO BP PRESSURE OR PUNCTURE. OG TUBE TO FEED, NEPRO AT 35 ML/HR. PATIENT ON JUDY ARM SOFT WRIST RESTRAINS, NO INJURY NOTED. OCASIO CATHETER IN PLACE DRAINING TO GRAVITY, CLEAR, YELLOW URINE NOTED. SKIN DRY AND WARM. ABDOMEN SOFT AND ROUND. BED IN LOW POSITION. JUDY SCDS ACTIVATED. SAFETY MEASURES IN PLACE. FALL RISK PROTOCOL. BED IN LOW POSITION AND BED ALARM ACTIVATED.
--- NOTE | 2020-07-24 07:20 | NUR ---
DR MURPHY IS ROUNDING ON PATIENT.
[2020-07-24 08:08] LABS: T4 (THYROXINE) 6.7 ug/dL (4.5-12.0)
--- NOTE | 2020-07-24 08:10 | NUR ---
RECEIVED CRITICAL LAB FOR TROPONIN 54.358, SERVICE LINE COORDINATOR IS DR FOX, AWAITING FOR DR FOX TO RETURN CALL.
[2020-07-24] MEDS: CALCIUM ACETATE 667 MG TAB PO SCH ×3 (08:41→16:50)
[2020-07-24] MEDS: VITAMIN B COMPLEX W/C 1 TAB PO SCH (08:41)
[2020-07-24] MEDS: ASPIRIN 81 MG TAB.CHEW PO SCH (08:41)
[2020-07-24] MEDS: FOLIC ACID 1 MG TAB PO SCH (08:42)
[2020-07-24] MEDS: GABAPENTIN 300 MG CAP PO SCH (08:45)
--- NOTE | 2020-07-24 08:50 | NUR ---
PATIENT HAS A SOFT YELLOW BM, PROVIDED HYGIENE CARE, OCASIO CARE, CHANGED ALL DIRTY LINENS, REPOSITION PATIENT AND OFFLOADED PRESSURE WITH PILLOWS. RELEASED SOFT WRIST RESTRAINTS AND PROVIDED ROM, PATIENT TOLERATED FAIR. EYES OPEN TO SHAKING AND STERNUM RUB < 3 SECONDS, FLACC 0. RESPIRATION EVEN AND UNLABORED ON TRACH TO VENT, SPO2 AT 98%. PROVIDED SUCTIONING. NO SIGNS OF ACUTE DISTRESS NOTED. SALES FLOOR MANAGER IN PLACE. SAFETY MEASURES IN PLACE. HOB ELEVATED 30 DEGREE, BED IN LOW POSITION, AND BED ALARM ACTIVATED.
[2020-07-24] MEDS: glipiZIDE 5 MG TAB PO SCH (09:00)
[2020-07-24] MEDS: amLODIPine 5 MG TAB PO SCH (09:21)
[2020-07-24] MEDS: carvediloL 12.5 MG TAB PO SCH ×2 (09:22→21:00)
--- NOTE | 2020-07-24 09:23 | NUR ---
CHECKED OGT RESIDUAL AND RECEIVED < 3 ML. BP 149/61 PULSE 81, ADMINISTERED AM MEDS PER MD ORDER, HOLD GLIPIZIDE PER DR MURPHY SUGGESTED, FLUSHED BEFORE AND AFTER MEDS. PROVIDED ORAL CARE, SUCTIONING, REPOSITIONED PATIENT, OFFLOADED PRESSURE WITH PILLOWS, APPLIED HEEL PROTECTORS AND SCD BILATERALLY. PATIENT TOLERATED FAIR, EYES OPEN ABOUT 3 SECONDS ON STERNUM RUB, UNABLE TO FOLLOW TRACK, FLACC 0. BARN BOSS IN PLACE. HOB ELEVATED 30 DEGREE, BED IN LOW POSITION, BED ALARM ACTIVATED.
--- NOTE | 2020-07-24 09:55 | NUR ---
DR FOX IS ROUNDING ON PATIENT.
--- NOTE | 2020-07-24 10:09 | NUR ---
LATHE MECHANIC IS DOING ECHOCARDIOGRAM BY BEDSIDE. NO SIGNS OF DISTRESS NOTED. [id number] ARMOR CREWMAN IN PLACE.
--- NOTE | 2020-07-24 10:30 | NUR ---
DR. FOX SPOKE TO PT IN LOBBY THIS MORNING AND ANSWERED ALL QUESTIONS IN REGARDS TO PT'S CARE. PT'S VERBALIZED UNDERSTANDING AND SATISFACTION WITH ANSWERS PROVIDED.
--- NOTE | 2020-07-24 11:15 | NUR ---
PERFORMED ORAL CARE AND SUCTIONING. RELEASED RESTRAINTS AND PERFORMED ROM EXERCISES, SKIN INTACT, NO INJURIES NOTED. REPOSITIONED AND OFFLOADED PRESSURE WITH PILLOWS. HOB 35 DEGREES, BED IN LOW POSITION. NO SIGNS OF ACUTE DISTRESS NOTED. SCDS AND ANKLE PROTECTORS IN PLACE BILATERALLY. OPERATIONS AGENT IN PLACE. SAFETY MEASURES IN PLACE.
[2020-07-24] MEDS: hePARIN / DEXT 5% PREMIX 250 ML IV SCH ×2 (11:24→18:33)
--- NOTE | 2020-07-24 11:33 | NUR ---
PTT 48.8 WITHIN THERAPEUTIC RANGE PER [facility]ARM[facility] PROTOCOL, NO CHANGE, CONTINUE RUNNING AT 950 UNIT/HR. ORDER THE NEXT PTT DRAW AT 1730. CRITICAL LAB FOR TROPONIN 29.117, TREND DOWN.
--- NOTE | 2020-07-24 12:20 | NUR ---
DR MILLER IS ROUNDING ON PATIENT.
--- NOTE | 2020-07-24 12:20 | NUR ---
BLOOD GLUCOSE CHECKED, 145, NO COVERAGE NECESSARY. PT REPOSITIONED AND OFFLOADED PRESSURE WITH PILLOWS. JUDY HEEL PROTECTORS AND ACDS IN PLACE. HOB 35 DEGREE, SPO2 100%. DESIGN PROJECT MANAGER IN PLACE. SAFETY MEASURES IN PLACE.
--- NOTE | 2020-07-24 13:08 | NUR ---
ADMINISTERED MEDICATIONS PER MD ORDER. OG TUBE <3 ML RESIDUAL, FLUSHED BEFORE AND AFTER MEDS. RELEASED SOFT WRIST RESTRAINS AND PERFORMED ROM EXERCISES, NO SIGNS OF INJURY NOTED. HOB 35%, BED IN LOW POSITION. PMP CERTIFIED PROJECT MANAGER IN PLACE, SAFETY MEASURES IN PLACE. JUDY HEEL PROTECTORS AND SCDS IN PLACE.
--- NOTE | 2020-07-24 15:25 | NUR ---
PT HAD A SMALL BM. PROVIDED HYGIENE, CHANGED ALL DIRTY LINEN. PERFORMED ORAL CARE AND SUCTIONING. RELEASED RESTRAINTS AND PERFORMED ROM, NO INJURIES NOTED. PT TOLERATED WELL, SPO2 96%. HOB 35 DEGREES AND BED IN LOW POSITION. JUDY HEEL PROTECTORS AND SCDS IN PLACE. COST AND SALES RECORD SUPERVISOR IN PLACE. SAFETY MEASURES IN PLACE.
--- NOTE | 2020-07-24 15:32 | NUR ---
DR HARRIS IS ASSESSING PATIENT AT BEDSIDE AND ORDERED HEAD CT WITHOUT CONTRAST.
--- NOTE | 2020-07-24 15:50 | NUR ---
NOTIFIED AND SPOKE TO CONTINUING EDUCATION DIRECTOR THAT PATIENT HAS ORDER FOR CT HEAD WITHOUT CONTRAST. PER TECH, SHE HAS A PATIENT IN ER, AND SHE WILL NOTIFY ME ONCE SHE IS AVAILABLE FOR CT. AWAITING FOR CT TO CALL BACK.
--- NOTE | 2020-07-24 16:47 | NUR ---
PT RETURNED FROM CT SCAN. REPOSITION PATIENT COMFORTABLY IN BED. HOB 35 DEGREES, SPO2 97%. OFFLOADED PRESSURE WITH PILLOWS. REAPPLIED RESTRAINS, NO SINGS OF INJURY. SCDS AND HEEL PROTECTORS ON BILATERALLY. BAG WORKER IN PLACE. BED IN LOW POSITION. SAFETY MEASURES IN PLACE.
--- NOTE | 2020-07-24 16:59 | NUR ---
ADMINISTERED SCHEDULED MEDS PER MD ORDER VIA OGT, CHECKED RESIDUAL AND RECEIVED < 3 ML, FLUSH BEFORE AND AFTER MED. PROVIDED ORAL CARE AND SUCTIONING, PATIENT TOLERATED FAIR. CLIENT SUPPORT REPRESENTATIVE IN PLACE. SAFETY MEASURES IN PLACE. HOB ELEVATED 35 DEGREE AND BED IN LOW POSITION.
--- NOTE | 2020-07-24 17:07 | NUR ---
DR MELGAR ROUNDING ON PT AT BEDSIDE
--- NOTE | 2020-07-24 17:51 | NUR ---
CHECKED BLOOD GLUCOSE, 218, ADMINISTERED 4 UNITS HUMALOG. HOB 35 DEGREE. BED IN LOW POSITION. JUDY SCDS AND HEEL PROTECTORS IN PLACE. RESCUE BOAT OPERATOR IN PLACE. SAFETY MEASURES IN PLACE.
--- NOTE | 2020-07-24 18:18 | NUR ---
RECEIVED CRITICAL FOR TROPONIN 25.097, TRENDING DOWN. HEPARIN DRIP CONTINUED.
--- NOTE | 2020-07-24 18:20 | NUR ---
STARTED A NEW BOTTLE OF NEPRO OGT TUBING PER RD RECOMMENDED, CHANGED ALL TUBINGS.
--- NOTE | 2020-07-24 18:34 | NUR ---
PTT 35.3, PER PHARMACY PROTOCOL, ADMINISTER BOLUS OF 2,100 UNIT AND INCREASE DRIP BY 150 UNIT/HR. HEPARIN INCREASED AND GOING AT 1,100 UNIT/HR. WILL ORDER THE NEXT PTT DRAW AT 07/25/2020 0040.
--- NOTE | 2020-07-24 18:50 | NUR ---
RECEIVED A CALL FROM PATIENT'S DAUGHTER RUDDY SHARONDA AND INQUIRY ABOUT PATIENT'S MEDICAL INFORMATION, EXPLAINED TO RUDDY THAT HER NAME IS NOT ON THE CONTACT FACE SHEET AND MR AGUIRRE THE DID NOT WISH TO RELEASE ANY INFORMATION TO ANYONE BESIDE HIM, RUDDY WAS UPSET AND SAID SHE WOULD LIKE TO TALK TO HIGHER AUTHORITY. TRANSFERRED CALL TO TOP TAPER MACHINE.
--- NOTE | 2020-07-24 19:15 | NUR ---
RECEIVED REPORT FORM CORINNA RN, AT BEDSIDE, FOR CONTINUITY OF CARE. PT LYING IN BED, A/O X0. DOES NOT RESPOND TO PAINFUL STIMULI. +GAG REFLEX UPON INLINE SUCTION. PUPILS 4 MM, PERRL. ETT TO VENT WITH SETTINGS FOLLOWS: ACVC: 25%, 5, 16. SPO2 REMAINS WNL THUS FAR THIS SHIFT. LUNGS CLEAR THROUGHOUT. +S1, S2 NOTED. URIEL PICC IN PLACE INFUSING HEPARIN @ 1100 U/HR. NO SIGNS OF ACTIVE BLEEDING NOTED. PERIPHERAL IV NOTED TO LT WRIST, 22G, PATENT. BOWEL SOUNDS ACTIVE X4. OGT IN PLACE RUNNING NEPRO @ 35 ML/HR WITH FWF 20 ML Q4H. 5 CC RESIDUAL ASPIRATED AND REPLACED. HOB >30 DEGREES. SKIN WARM AND DRY. SOFT WRIST RESTRAINTS IN PACE DUE TO PT ATTEMPTING TO REMOVE TUBES/LINES. HEEL PROTECTORS IN USE. BED LOW AND LOCKED. WILL CONT TO MONITOR.
--- NOTE | 2020-07-24 19:18 | NUR ---
ENDORSED PT TO EXPANSION JOINT BUILDER NURSE KIAH FOR CONTINUITY OF CARE. PT IN STABLE CONDITION.
--- NOTE | 2020-07-24 19:32 | NUR ---
RECEIVED REPORT FROM AM SHIFT. PT SEEN AND ASSESSED. PT IS INTUBATED WITH ETT SIZE 7.0 AND SECURED WITH ANCHOR-FAST @ 22cm. PT IS ON VENT SETTINGS: AC/VC RR 16bpm, Vt 450cc, PEEP 5 cmH20, FiO2 25% WITH SPO2 OF 100%. VENT PLUGGED IN RED OUTLET. VENT ALARMS SET AND AUDIBLE TO ENVIRONMENT. AUSCULTATION REVEALS BILATERAL CLEAR BREATH SOUNDS. SUCTIONED NONE TO SCANT CLEAR WHITE SECRETIONS FROM ETT. AIRWAY IS PATENT. PT IS IN NO APPARENT RESPIRATORY DISTRESS AT THIS TIME. WILL CONTINUE TO MONITOR PT.
--- NOTE | 2020-07-24 20:05 | NUR ---
[facility] CALLED PT TO BE TRANSFERRED TO UNIT [phone] , [id number], BED 1, [phone]. CALL CENTER CALLED
[2020-07-24] MEDS: ATORVASTATIN 20 MG TAB PO SCH (21:00)
[2020-07-24] MEDS ORDERED: CRUSHER, PILL MC ONE (22:16)
--- NOTE | 2020-07-24 22:41 | NUR ---
[facility] AT BEDSIDE TO TRANSFER PT TO [facility].
--- NOTE | 2020-07-25 00:31 | NUR ---
REPORT GIVEN TO SOHAN HWANG @ [facility] [phone]
== END 2020-07-24 22:55 | disposition short-term general hospital (02) | DRG 871 ==
LOC: MED 20:59 → EEVIPCON 23:13 → MTU 23:13 → MIC 07-23 01:19
PROC: 0BH17EZ Insertion of Endotracheal Airway into Trachea, Via Natural or Artificial Opening (ICD-10-PCS; 2020-07-22)
PROC: 5A1945Z Respiratory Ventilation, 24-96 Consecutive Hours (ICD-10-PCS; 2020-07-22)
PROC: B548ZZA Ultrasonography of Superior Vena Cava, Guidance (ICD-10-PCS; principal; 2020-07-23)
PROC: 02HV33Z Insertion of Infusion Device into Superior Vena Cava, Percutaneous Approach (ICD-10-PCS; 2020-07-23)
PROC: 5A1D70Z Performance of Urinary Filtration, Intermittent, Less than 6 Hours Per Day (ICD-10-PCS; 2020-07-23)
DX: A41.9 Sepsis, unspecified organism (principal); N17.0 Acute kidney failure with tubular necrosis; N18.6 End stage renal disease; I21.4 Non-ST elevation (NSTEMI) myocardial infarction; J69.0 Pneumonitis due to inhalation of food and vomit; J96.01 Acute respiratory failure with hypoxia; E44.1 Mild protein-calorie malnutrition; G93.40 Encephalopathy, unspecified; I12.0 Hypertensive chronic kidney disease with stage 5 chronic kidney disease or end stage renal disease; D63.1 Anemia in chronic kidney disease; E11.22 Type 2 diabetes mellitus with diabetic chronic kidney disease; E11.51 Type 2 diabetes mellitus with diabetic peripheral angiopathy without gangrene; E11.649 Type 2 diabetes mellitus with hypoglycemia without coma; J45.909 Unspecified asthma, uncomplicated; E87.70 Fluid overload, unspecified; E11.40 Type 2 diabetes mellitus with diabetic neuropathy, unspecified; E11.65 Type 2 diabetes mellitus with hyperglycemia; E11.43 Type 2 diabetes mellitus with diabetic autonomic (poly)neuropathy; K31.84 Gastroparesis; E83.39 Other disorders of phosphorus metabolism; I25.10 Atherosclerotic heart disease of native coronary artery without angina pectoris; Z20.828 Contact with and (suspected) exposure to other viral communicable diseases; Z99.2 Dependence on renal dialysis; Z86.73 Personal history of transient ischemic attack (TIA), and cerebral infarction without residual deficits; Z87.891 Personal history of nicotine dependence; Z88.5 Allergy status to narcotic agent; Z79.84 Long term (current) use of oral hypoglycemic drugs; Z95.1 Presence of aortocoronary bypass graft; Z79.899 Other long term (current) drug therapy; Z68.27 Body mass index [BMI] 27.0-27.9, adult
CPT/HCPCS: 31500; 36415; 36600; 70450; 71045; 80048; 80053; 80305; 81001; 82140; 82150; 82803; 83036; 83605; 83690; 83735; 83880; 84100; 84134; 84436; 84443; 84484; 85025; 85610; 85730; 87040; 87070; 87081; 87086; 87205; 93005; 93925; 93970; 94003; 96365; 96375; 99291; J1644; J1815; J1940; J2543; J2704; J3490; J7030; J7060; Q0092; U0003